=== PATIENT | female | born 1965 | race Two or more races ===

== ENCOUNTER → 2019-12-21 09:11 | Outpatient (BNVA) | payer MEDICAID, SELFPAY | PROVIDERS: PCP Student in an Organized Health Care Education/Training Program; Referring Provider Student in an Organized Health Care Education/Training Program; Visit Provider Internal Medicine Endocrinology, Diabetes & Metabolism | DX: E03.8 Other specified hypothyroidism (principal); E06.3 Autoimmune thyroiditis; R94.5 Abnormal results of liver function studies; E78.5 Hyperlipidemia, unspecified; Z79.899 Other long term (current) drug therapy | CPT/HCPCS: 99212 ==

== ENCOUNTER 2019-12-29 13:39 | Outpatient (REF) | payer MEDICAID, SELFPAY ==
--- NOTE | 2019-12-29 13:46 | US_ITS ---
EXAMINATION: US THYROID CLINICAL INFORMATION: Other specified hypothyroidism. COMPARISON: Ultrasound soft tissue head/neck thyroid dated 08/10/2019 and 08/09/2018. TECHNIQUE: Linear transducer zavala-scale and color Doppler examination with attention to the region of the thyroid. FINDINGS: SIZE: Measurements of the solitary left thyroid lobe and nodules are given in sagittal, anteroposterior and transverse dimensions respectively. Right Thyroid Lobe: Surgically absent. Left Thyroid Lobe: 4.1 x 1.6 x 1.6 cm, volume 5.5 mL. Previously 4.9 x 1.9 x 1.8 cm, volume 8.8 mL. Parenchyma: The gland echotexture is heterogeneous. Thyroid vascularity is increased. Isthmus: 0.3 cm in maximum AP dimension. ISTHMUS: No nodules. LEFT THYROID LOBE: There is 1 nodule seen. 1. Location: Inferior. Size: 1.1 x 0.7 x 0.8 cm. Previous: 1.1 x 0.9 x 1.0 cm. Nodule characteristics: Hypoechoic with smooth margins. No internal calcification. There is intranodular flow. NODES: None. US/US thyroid IMPRESSION: Heterogeneous thyroid gland with increased vascularity, similar to prior. Unchanged nodule in the left thyroid lobe.
== END 2019-12-29 13:40 | disposition home or self-care (01) ==
LOC: HO.US 13:39
PROVIDERS: PCP Student in an Organized Health Care Education/Training Program; Visit Provider Internal Medicine Endocrinology, Diabetes & Metabolism
DX: E03.8 Other specified hypothyroidism (principal); E06.3 Autoimmune thyroiditis
CPT/HCPCS: 76536

== ENCOUNTER → 2020-02-24 12:28 | Outpatient (BNVA) | payer MEDICAID, SELFPAY | PROVIDERS: PCP Student in an Organized Health Care Education/Training Program; Visit Provider Student in an Organized Health Care Education/Training Program | DX: Z76.89 Persons encountering health services in other specified circumstances (principal) ==

== ENCOUNTER 2020-03-09 08:39 | Outpatient (REF) | payer MEDICAID, SELFPAY ==
--- NOTE | 2020-03-09 08:54 | XR_ITS ---
EXAMINATION: XR ANKLE, RIGHT CLINICAL INFORMATION: Rheumatoid arthritis with rheumatoid factor COMPARISON: Right foot x-ray August 2018 TECHNIQUE: AP, lateral, and mortise views of the right ankle. FINDINGS: Bone alignment is normal. No fracture or dislocation is seen. The ankle mortise is normal. There is a small calcaneal spur at the Achilles tendon insertion. XR/XR ankle RT min 3V IMPRESSION: Calcaneal spur at the Achilles tendon insertion otherwise unremarkable exam
[2020-03-09 09:18] LABS: MANUAL DIFF FLAG NO
[2020-03-09 09:25] LABS: Basophils Percent Auto 0.2 % (0-2); Eosinophils Absolute Auto 0.1 X10*3/uL (0.0-0.4); Eosinophils Percent Auto 1.4 % (0-4); Hematocrit 39.6 % (37-47); Hemoglobin 12.5 g/dl (12.0-16.0); Imm Gran Abs Auto 0.01 X10*3/uL (0.00-0.03); Imm Gran Pct Auto 0.2 % (0.0-0.4); Lymphocytes Absolute Auto 1.6 X10*3/uL (1.2-4.9); Lymphocytes Percent Auto 38.6 % (20-40); Mean Corpuscular HGB Conc 31.6 g/dl (31.0-35.0); Mean Corpuscular Hemoglobin 30.9 pg (27.0-33.0); Mean Corpuscular Volume 97.8 fL (80-98); Mean Platelet Volume 10.1 fL (9.4-12.3); Monocytes Absolute Auto 0.4 X10*3/uL (0.1-1.2); Monocytes Percent Auto 9.7 % (2-11); Neutrophils Absolute Auto 2.1 X10*3/uL (2.0-8.3); Neutrophils Percent Auto 49.9 % (45-73); Platelet Count 257 X10*3/uL (160-400); Red Blood Count 4.05 X10*6/uL (4.20-5.50); Red Cell Distribution Width 12.6 % (11.0-16.0); White Blood Count 4.1 X10*3/uL (4.8-10.8)
[2020-03-09 09:47] LABS: Alanine Aminotransferase 27 U/L (0-31); Albumin Level 4.3 g/dL (3.5-5.0); Alkaline Phosphatase 126 U/L (39-117); Anion Gap 9 (12-20); Aspartate Amino Transferase 21 U/L (5-31); Bilirubin Direct < 0.2 mg/dL (0.0-0.5); Bilirubin Total 0.2 mg/dL (0.0-1.0); Blood Urea Nitrogen 14 mg/dL (9-16); C Reactive Protein 0.05 mg/dL (< or = 0.50); Calcium 8.9 mg/dL (8.4-10.2); Carbon Dioxide 30 mmol/L (22-29); Chloride 105 mmol/L (96-108); Cholesterol 182 mg/dL; Estimated Glomerular Filt Rate > 60; Glucose Random 97 mg/dL (60-115); HDL Cholesterol 57 mg/dL; LDL Cholesterol Calculated 100 mg/dl; Potassium 4.2 mmol/l (3.3-5.1); Sodium 140 mmol/L (135-145); Total Protein 7.3 g/dL (6.5-8.0); Triglycerides 129 mg/dL
[2020-03-09 10:07] LABS: Free T4 (Free Thyroxine) 1.03 ng/dL (0.71-1.85); Thyroid Stimulating Hormone 8.74 uIU/mL (0.32-4.0)
[2020-03-09 10:10] LABS: Erythrocyte Sedimentation Rate 7 MM/HR (0-20)
[2020-03-10 09:07] LABS: LDL Cholesterol Direct 104 mg/dL (<100)
== END 2020-03-09 08:40 | disposition home or self-care (01) ==
LOC: HO.LAB 08:39
PROVIDERS: PCP Student in an Organized Health Care Education/Training Program; Referring Provider Student in an Organized Health Care Education/Training Program; Visit Provider Internal Medicine Endocrinology, Diabetes & Metabolism
DX: M05.9 Rheumatoid arthritis with rheumatoid factor, unspecified (principal); E03.8 Other specified hypothyroidism; E06.3 Autoimmune thyroiditis; E78.5 Hyperlipidemia, unspecified
CPT/HCPCS: 36415; 73610; 80053; 80061; 80076; 82248; 83721; 84439; 84443; 85025; 85652; 86140

== ENCOUNTER 2020-05-09 07:56 | Outpatient (REF) | payer MEDICAID, SELFPAY ==
[2020-05-09 09:07] LABS: Alanine Aminotransferase 26 U/L (0-31); Albumin Level 4.2 g/dL (3.5-5.0); Alkaline Phosphatase 115 U/L (39-117); Anion Gap 15 (12-20); Aspartate Amino Transferase 24 U/L (5-31); Bilirubin Direct 0.2 mg/dL (0.0-0.5); Blood Urea Nitrogen 14 mg/dL (9-16); Calcium 8.8 mg/dL (8.4-10.2); Carbon Dioxide 26 mmol/L (22-29); Chloride 103 mmol/L (96-108); Cholesterol 164 mg/dL; Estimated Glomerular Filt Rate > 60; Glucose Random 90 mg/dL (60-115); HDL Cholesterol 50 mg/dL; LDL Cholesterol Calculated 87 mg/dl; Potassium 4.1 mmol/L (3.3-5.1); Sodium 140 mmol/L (135-145); Total Protein 7.3 g/dL (6.5-8.0); Triglycerides 135 mg/dL
[2020-05-09 09:25] LABS: Free T4 (Free Thyroxine) 0.93 ng/dL (0.71-1.85)
[2020-05-09 09:51] LABS: Vitamin B12 233 pg/mL (200-900)
== END 2020-05-09 07:57 | disposition home or self-care (01) ==
LOC: HO.LAB 07:56
PROVIDERS: Absent Provider Student in an Organized Health Care Education/Training Program; PCP Student in an Organized Health Care Education/Training Program; Visit Provider Internal Medicine Endocrinology, Diabetes & Metabolism
DX: E03.8 Other specified hypothyroidism (principal); E06.3 Autoimmune thyroiditis; R41.3 Other amnesia; M05.9 Rheumatoid arthritis with rheumatoid factor, unspecified; M77.31 Calcaneal spur, right foot; Z79.899 Other long term (current) drug therapy
CPT/HCPCS: 36415; 80048; 80061; 80076; 82607; 84439; 84443; 99212

== ENCOUNTER → 2020-06-19 13:36 | Outpatient (BNVA) | payer MEDICAID, SELFPAY | PROVIDERS: PCP Student in an Organized Health Care Education/Training Program; Visit Provider Internal Medicine Endocrinology, Diabetes & Metabolism ==

== ENCOUNTER 2020-09-07 13:37 | Outpatient (REF) | payer MEDICAID, SELFPAY ==
[2020-09-07 14:43] LABS: MANUAL DIFF FLAG NO
[2020-09-07 15:04] LABS: Basophils Percent Auto 0.5 % (0-2); Eosinophils Absolute Auto 0.1 X10*3/uL (0.0-0.4); Eosinophils Percent Auto 1.8 % (0-4); Hematocrit 38.5 % (37-47); Hemoglobin 12.3 g/dl (12.0-16.0); Imm Gran Abs Auto 0.01 X10*3/uL (0.00-0.03); Imm Gran Pct Auto 0.2 % (0.0-0.4); Lymphocytes Absolute Auto 1.5 X10*3/uL (1.2-4.9); Lymphocytes Percent Auto 34.3 % (20-40); Mean Corpuscular HGB Conc 31.9 g/dl (31.0-35.0); Mean Corpuscular Hemoglobin 30.6 pg (27.0-33.0); Mean Corpuscular Volume 95.8 fL (80-98); Mean Platelet Volume 10.2 fL (9.4-12.3); Monocytes Absolute Auto 0.4 X10*3/uL (0.1-1.2); Monocytes Percent Auto 8.9 % (2-11); Neutrophils Absolute Auto 2.4 X10*3/uL (2.0-8.3); Neutrophils Percent Auto 54.3 % (45-73); Platelet Count 266 X10*3/uL (160-400); Red Blood Count 4.02 X10*6/uL (4.20-5.50); Red Cell Distribution Width 13.3 % (11.0-16.0); White Blood Count 4.4 X10*3/uL (4.8-10.8)
[2020-09-07 15:09] LABS: Alanine Aminotransferase 22 U/L (0-31); Albumin Level 4.3 g/dL (3.5-5.0); Alkaline Phosphatase 121 U/L (39-117); Anion Gap 13 (12-20); Aspartate Amino Transferase 22 U/L (5-31); Bilirubin Total 0.5 mg/dL (0.0-1.0); Blood Urea Nitrogen 12 mg/dL (9-16); C Reactive Protein 0.05 mg/dL (< or = 0.50); Calcium 9.6 mg/dL (8.4-10.2); Carbon Dioxide 24 mmol/L (22-29); Chloride 109 mmol/L (96-108); Estimated Glomerular Filt Rate > 60; Glucose Random 113 mg/dL (60-115); Potassium 4.1 mmol/L (3.3-5.1); Sodium 142 mmol/L (135-145); Total Protein 7.3 g/dL (6.5-8.0)
[2020-09-07 15:29] LABS: Thyroid Stimulating Hormone 3.23 uIU/mL (0.32-4.0)
[2020-09-07 15:30] LABS: Free T4 (Free Thyroxine) 0.92 ng/dL (0.71-1.85)
[2020-09-07 15:46] LABS: Erythrocyte Sedimentation Rate 8 MM/HR (0-20)
== END 2020-09-07 13:38 | disposition home or self-care (01) ==
LOC: HO.LAB 13:37
PROVIDERS: PCP Student in an Organized Health Care Education/Training Program; Referring Provider Internal Medicine Endocrinology, Diabetes & Metabolism; Visit Provider Student in an Organized Health Care Education/Training Program
DX: M05.9 Rheumatoid arthritis with rheumatoid factor, unspecified (principal); E03.8 Other specified hypothyroidism; E06.3 Autoimmune thyroiditis; M77.31 Calcaneal spur, right foot; Z79.899 Other long term (current) drug therapy
CPT/HCPCS: 36415; 80053; 84439; 84443; 85025; 85652; 86140; 99212

== ENCOUNTER 2021-03-27 09:40 | Outpatient (REF) | payer MEDICAID, SELFPAY ==
[2021-03-27 10:58] LABS: MANUAL DIFF FLAG NO
[2021-03-27 11:09] LABS: Basophils Percent Auto 0.5 % (0-2); Eosinophils Absolute Auto 0.1 X10*3/uL (0.0-0.4); Eosinophils Percent Auto 1.8 % (0-4); Hematocrit 41.4 % (37.0-47.0); Hemoglobin 13.3 g/dl (12.0-16.0); Lymphocytes Absolute Auto 1.4 X10*3/uL (1.2-4.9); Mean Corpuscular HGB Conc 32.1 g/dl (31.0-35.0); Mean Corpuscular Hemoglobin 30.5 pg (27.0-33.0); Monocytes Absolute Auto 0.4 X10*3/uL (0.1-1.2); Monocytes Percent Auto 8.8 % (2-11); Neutrophils Absolute Auto 2.2 x10*3/uL (2.0-8.3); Neutrophils Percent Auto 54.9 % (45-73); Platelet Count 254 X10*3/uL (160-400); Red Blood Count 4.36 X10*6/uL (4.20-5.50); Red Cell Distribution Width 12.5 % (11.0-16.0)
[2021-03-27 11:54] LABS: Erythrocyte Sedimentation Rate 12 MM/HR (0-20)
[2021-03-27 13:50] LABS: Alanine Aminotransferase 19 U/L (0-31); Albumin Level 4.2 g/dL (3.5-5.0); Alkaline Phosphatase 131 U/L (39-117); Anion Gap 10 (12-20); Aspartate Amino Transferase 17 U/L (5-31); Bilirubin Total 0.6 mg/dL (0.0-1.0); C Reactive Protein 0.08 mg/dL (< or = 0.50); Carbon Dioxide 27 mmol/L (22-29); Chloride 108 mmol/L (96-108); Estimated Glomerular Filt Rate > 60; Glucose Random 120 mg/dL (60-115); Sodium 141 mmol/L (135-145); Total Protein 7.4 g/dL (6.5-8.0)
[2021-03-27 14:57] LABS: Blood Urea Nitrogen 15 mg/dL (9-16); Calcium 9.4 mg/dL (8.4-10.2); Potassium 4.4 mmol/L (3.3-5.1)
== END 2021-03-27 09:41 | disposition home or self-care (01) ==
LOC: HO.LAB 09:40
PROVIDERS: PCP Student in an Organized Health Care Education/Training Program; Visit Provider Nurse Practitioner Family
DX: M05.9 Rheumatoid arthritis with rheumatoid factor, unspecified (principal); M77.31 Calcaneal spur, right foot; M54.50 Low back pain, unspecified; Z79.899 Other long term (current) drug therapy
CPT/HCPCS: 36415; 80053; 85025; 85652; 86140; 99212

== ENCOUNTER 2021-04-15 10:15 | Outpatient (REF) | payer MEDICAID, SELFPAY ==
--- NOTE | ~2021-04-15 | XR_ITS ---
EXAMINATION: XR LUMBOSACRAL SPINE CLINICAL INFORMATION: Low back pain COMPARISON: X-ray 11/21/2014 TECHNIQUE: Three views of the lumbosacral spine. FINDINGS: There is normal alignment. Vertebral body heights are maintained. No evidence of acute fracture. Disc spaces relatively maintained. Mild endplate spurring at a few levels. Mild facet degeneration in the lower lumbar spine. XR/XR lumbar spine 2-3V IMPRESSION: No acute osseous abnormality. Minimal spondylosis.
[2021-04-15 11:57] LABS: Cholesterol 175 mg/dL; HDL Cholesterol 49 mg/dL; LDL Cholesterol Calculated 105 mg/dl; Triglycerides 109 mg/dL
[2021-04-15 12:09] LABS: Free T4 (Free Thyroxine) 1.01 ng/dL (0.71-1.85); Thyroid Stimulating Hormone 5.56 uIU/mL (0.32-4.0)
[2021-04-16 17:31] LABS: LDL Cholesterol Direct 107 mg/dL (<100)
[2021-04-17 19:27] LABS: Alkaline Phosphatase Bone 15.5 mcg/L (5.6-29.0)
== END 2021-04-15 10:16 | disposition home or self-care (01) ==
LOC: HO.LAB 10:15
PROVIDERS: Absent Provider Nurse Practitioner Family; PCP Student in an Organized Health Care Education/Training Program; Visit Provider Internal Medicine Endocrinology, Diabetes & Metabolism
DX: E03.8 Other specified hypothyroidism (principal); E06.3 Autoimmune thyroiditis; E78.5 Hyperlipidemia, unspecified; M54.50 Low back pain, unspecified; R74.8 Abnormal levels of other serum enzymes
CPT/HCPCS: 36415; 72100; 80061; 83721; 84075; 84439; 84443

== ENCOUNTER → 2021-04-16 13:06 | Outpatient (BNVA) | payer MEDICAID, SELFPAY | PROVIDERS: PCP Student in an Organized Health Care Education/Training Program; Visit Provider Internal Medicine Endocrinology, Diabetes & Metabolism | DX: E03.8 Other specified hypothyroidism (principal); E06.3 Autoimmune thyroiditis; E78.5 Hyperlipidemia, unspecified; Z79.899 Other long term (current) drug therapy | CPT/HCPCS: 99212 ==

== ENCOUNTER 2021-05-27 10:08 | Outpatient (REF) | payer MEDICAID, SELFPAY ==
[2021-05-27 12:01] LABS: Free T4 (Free Thyroxine) 0.76 ng/dL (0.71-1.85); Thyroid Stimulating Hormone 14.45 uIU/mL (0.32-4.0)
== END 2021-05-27 10:09 | disposition home or self-care (01) ==
LOC: HO.LAB 10:08
PROVIDERS: PCP Student in an Organized Health Care Education/Training Program; Visit Provider Internal Medicine Endocrinology, Diabetes & Metabolism
DX: E03.8 Other specified hypothyroidism (principal); E06.3 Autoimmune thyroiditis
CPT/HCPCS: 36415; 84439; 84443

== ENCOUNTER 2021-06-24 09:56 | Outpatient (REF) | payer MEDICAID, SELFPAY ==
[2021-06-24 10:26] LABS: MANUAL DIFF FLAG NO
[2021-06-24 11:18] LABS: Basophils Percent Auto 0.7 % (0-2); Eosinophils Absolute Auto 0.1 X10*3/uL (0.0-0.4); Hematocrit 38.3 % (37.0-47.0); Hemoglobin 12.1 g/dl (12.0-16.0); Imm Gran Abs Auto 0.02 X10*3/uL (0.00-0.03); Imm Gran Pct Auto 0.4 % (0.0-0.4); Lymphocytes Absolute Auto 1.6 X10*3/uL (1.2-4.9); Lymphocytes Percent Auto 34.9 % (20-40); Mean Corpuscular HGB Conc 31.6 g/dl (31.0-35.0); Mean Corpuscular Volume 94.8 fL (80.0-98.0); Mean Platelet Volume 10.3 fL (9.4-12.3); Monocytes Absolute Auto 0.3 X10*3/uL (0.1-1.2); Monocytes Percent Auto 6.8 % (2-11); Neutrophils Absolute Auto 2.5 x10*3/uL (2.0-8.3); Neutrophils Percent Auto 55.2 % (45-73); Platelet Count 303 X10*3/uL (160-400); Red Blood Count 4.04 X10*6/uL (4.20-5.50); Red Cell Distribution Width 13.3 % (11.0-16.0); White Blood Count 4.6 X10*3/uL (4.8-10.8)
[2021-06-24 11:45] LABS: Alanine Aminotransferase 19 U/L (0-31); Albumin Level 3.9 g/dL (3.5-5.0); Alkaline Phosphatase 116 U/L (39-117); Anion Gap 15 (12-20); Aspartate Amino Transferase 20 U/L (5-31); Bilirubin Total 0.3 mg/dL (0.0-1.0); Blood Urea Nitrogen 13 mg/dL (9-16); C Reactive Protein 0.14 mg/dL (< or = 0.50); Calcium 9.3 mg/dL (8.4-10.2); Carbon Dioxide 24 mmol/L (22-29); Chloride 108 mmol/L (96-108); Estimated Glomerular Filt Rate > 60; Glucose Random 116 mg/dL (60-115); Potassium 4.8 mmol/L (3.3-5.1); Sodium 142 mmol/L (135-145); Total Protein 7.4 g/dL (6.5-8.0)
[2021-06-24 11:55] LABS: Erythrocyte Sedimentation Rate 23 MM/HR (0-20)
[2021-06-24 12:07] LABS: Free T4 (Free Thyroxine) 0.98 ng/dL (0.71-1.85)
== END 2021-06-24 09:57 | disposition home or self-care (01) ==
LOC: HO.LAB 09:56
PROVIDERS: Absent Provider Internal Medicine Endocrinology, Diabetes & Metabolism; PCP Student in an Organized Health Care Education/Training Program; Visit Provider Nurse Practitioner Family
DX: E03.8 Other specified hypothyroidism (principal); E06.3 Autoimmune thyroiditis; M05.9 Rheumatoid arthritis with rheumatoid factor, unspecified
CPT/HCPCS: 36415; 80053; 84439; 84443; 85025; 85652; 86140

== ENCOUNTER → 2021-06-26 12:20 | Outpatient (BNVA) | payer MEDICAID, SELFPAY | PROVIDERS: PCP Student in an Organized Health Care Education/Training Program; Visit Provider Nurse Practitioner Family | DX: M05.9 Rheumatoid arthritis with rheumatoid factor, unspecified (principal); M54.50 Low back pain, unspecified; M77.31 Calcaneal spur, right foot; Z79.899 Other long term (current) drug therapy | CPT/HCPCS: 99212 ==

== ENCOUNTER 2021-06-27 12:48 | Outpatient (REF) | payer MEDICAID, SELFPAY ==
--- NOTE | ~2021-06-27 | MM_ITS ---
EXAMINATION: MM SCREENING DIGITAL BREAST TOMOSYNTHESIS, BILATERAL CLINICAL INFORMATION: Screening. Asymptomatic. The lifetime risk of breast cancer based on the Tyrer-Cuzick Model is 8.1%. COMPARISON: Mammography: 01/03/2019 and studies dating back to 10/30/2014. TECHNIQUE: Digital breast tomosynthesis is performed in both the craniocaudal and mediolateral oblique views along with computer-aided detection (CAD). Synthesized 2D images are generated from the tomosynthesis. Additional bilateral exaggerated craniocaudal views performed. FINDINGS: The breasts are extremely dense, which lowers the sensitivity of mammography (ACR BI-RADS breast composition Category d). There are no significant masses, abnormal calcifications, or other abnormalities. There is question of a irregular marginated density on left breast mediolateral oblique projection inferiorly; however, exaggerated craniocaudal view and tomosynthesis views demonstrate this to have represented superimposition of fibroglandular tissue. MM/MM tomosynthesis screening BI IMPRESSION: There are no significant changes from prior study. ASSESSMENT: BI-RADS 1: Negative. RECOMMENDATION: Routine annual mammography screening. This patient's information was entered into a reminder system with a target due date for their next mammogram.
== END 2021-06-27 12:49 | disposition home or self-care (01) ==
LOC: HO.MAMMO 12:48
PROVIDERS: PCP Student in an Organized Health Care Education/Training Program; Visit Provider Student in an Organized Health Care Education/Training Program
DX: Z12.31 Encounter for screening mammogram for malignant neoplasm of breast (principal)
CPT/HCPCS: 77063; 77067

== ENCOUNTER 2021-09-27 09:04 | Outpatient (REF) | payer MEDICAID, SELFPAY ==
[2021-09-27 09:20] LABS: MANUAL DIFF FLAG NO
[2021-09-27 10:16] LABS: Basophils Percent Auto 0.7 % (0-2); Eosinophils Absolute Auto 0.1 X10*3/uL (0.0-0.4); Eosinophils Percent Auto 1.9 % (0-4); Hematocrit 41.3 % (37.0-47.0); Hemoglobin 13.3 g/dl (12.0-16.0); Imm Gran Abs Auto 0.01 X10*3/uL (0.00-0.03); Imm Gran Pct Auto 0.2 % (0.0-0.4); Lymphocytes Absolute Auto 1.9 X10*3/uL (1.2-4.9); Lymphocytes Percent Auto 43.6 % (20-40); Mean Corpuscular HGB Conc 32.2 g/dl (31.0-35.0); Mean Corpuscular Hemoglobin 30.1 pg (27.0-33.0); Mean Corpuscular Volume 93.4 fL (80.0-98.0); Mean Platelet Volume 10.3 fL (9.4-12.3); Monocytes Absolute Auto 0.5 X10*3/uL (0.1-1.2); Monocytes Percent Auto 10.7 % (2-11); Neutrophils Absolute Auto 1.9 x10*3/uL (2.0-8.3); Neutrophils Percent Auto 42.9 % (45-73); Platelet Count 284 X10*3/uL (160-400); Red Blood Count 4.42 X10*6/uL (4.20-5.50); Red Cell Distribution Width 13.6 % (11.0-16.0); White Blood Count 4.3 X10*3/uL (4.8-10.8)
[2021-09-27 10:31] LABS: Alanine Aminotransferase 20 U/L (0-31); Albumin Level 4.3 g/dL (3.5-5.0); Alkaline Phosphatase 127 U/L (39-117); Anion Gap 15 (12-20); Aspartate Amino Transferase 17 U/L (5-31); Bilirubin Total 0.6 mg/dL (0.0-1.0); Blood Urea Nitrogen 14 mg/dL (9-16); Calcium 9.6 mg/dL (8.4-10.2); Carbon Dioxide 27 mmol/L (22-29); Chloride 102 mmol/L (96-108); Estimated Glomerular Filt Rate > 60; Glucose Random 109 mg/dL (60-115); Potassium 4.4 mmol/L (3.3-5.1); Sodium 140 mmol/L (135-145); Total Protein 7.6 g/dL (6.5-8.0)
[2021-09-27 10:56] LABS: Erythrocyte Sedimentation Rate 13 MM/HR (0-20)
[2021-09-27 10:57] LABS: Free T4 (Free Thyroxine) 1.03 ng/dL (0.71-1.85)
== END 2021-09-27 09:05 | disposition home or self-care (01) ==
LOC: HO.LAB 09:04
PROVIDERS: Absent Provider Internal Medicine Endocrinology, Diabetes & Metabolism; PCP Student in an Organized Health Care Education/Training Program; Visit Provider Nurse Practitioner Family
DX: E03.8 Other specified hypothyroidism (principal); E06.3 Autoimmune thyroiditis; M05.9 Rheumatoid arthritis with rheumatoid factor, unspecified
CPT/HCPCS: 36415; 80053; 84439; 84443; 85025; 85652; 86140

== ENCOUNTER → 2021-10-03 13:40 | Outpatient (BNVA) | payer MEDICAID, SELFPAY | PROVIDERS: PCP Student in an Organized Health Care Education/Training Program; Visit Provider Nurse Practitioner Family | DX: M05.9 Rheumatoid arthritis with rheumatoid factor, unspecified (principal); M54.50 Low back pain, unspecified; M77.31 Calcaneal spur, right foot; Z79.899 Other long term (current) drug therapy | CPT/HCPCS: 99212 ==

== ENCOUNTER → 2021-10-17 13:00 | Outpatient (BNVA) | payer MEDICAID, SELFPAY | PROVIDERS: PCP Student in an Organized Health Care Education/Training Program; Visit Provider Internal Medicine Endocrinology, Diabetes & Metabolism | DX: E03.8 Other specified hypothyroidism (principal); E06.3 Autoimmune thyroiditis; E78.5 Hyperlipidemia, unspecified | CPT/HCPCS: 99212 ==

== ENCOUNTER 2021-10-31 09:15 | Outpatient (REF) | payer MEDICAID, SELFPAY ==
[2021-10-31 09:25] LABS: MANUAL DIFF FLAG NO
[2021-10-31 09:37] LABS: Basophils Percent Auto 0.5 % (0-2); Eosinophils Absolute Auto 0.1 X10*3/uL (0.0-0.4); Eosinophils Percent Auto 1.5 % (0-4); Hematocrit 41.2 % (37.0-47.0); Hemoglobin 13.3 g/dl (12.0-16.0); Imm Gran Abs Auto 0.01 X10*3/uL (0.00-0.03); Imm Gran Pct Auto 0.2 % (0.0-0.4); Lymphocytes Absolute Auto 2.2 X10*3/uL (1.2-4.9); Lymphocytes Percent Auto 36.6 % (20-40); Mean Corpuscular HGB Conc 32.3 g/dl (31.0-35.0); Mean Corpuscular Hemoglobin 30.6 pg (27.0-33.0); Mean Corpuscular Volume 94.9 fL (80.0-98.0); Mean Platelet Volume 10.2 fL (9.4-12.3); Monocytes Absolute Auto 0.6 X10*3/uL (0.1-1.2); Monocytes Percent Auto 9.3 % (2-11); Neutrophils Absolute Auto 3.1 x10*3/uL (2.0-8.3); Neutrophils Percent Auto 51.9 % (45-73); Platelet Count 273 X10*3/uL (160-400); Red Blood Count 4.34 X10*6/uL (4.20-5.50); Red Cell Distribution Width 13.2 % (11.0-16.0)
== END 2021-10-31 09:16 | disposition home or self-care (01) ==
LOC: HO.LAB 09:15
PROVIDERS: PCP Student in an Organized Health Care Education/Training Program; Visit Provider Nurse Practitioner Family
DX: M05.9 Rheumatoid arthritis with rheumatoid factor, unspecified (principal)
CPT/HCPCS: 36415; 85025

== ENCOUNTER → 2022-01-14 13:29 | Outpatient (BNVA) | payer MEDICAID, SELFPAY | PROVIDERS: PCP Student in an Organized Health Care Education/Training Program; Visit Provider Nurse Practitioner Family | DX: M05.9 Rheumatoid arthritis with rheumatoid factor, unspecified (principal); M25.562 Pain in left knee; M54.50 Low back pain, unspecified; M77.31 Calcaneal spur, right foot; Z79.899 Other long term (current) drug therapy | CPT/HCPCS: 99212 ==

== ENCOUNTER 2022-02-03 09:43 | Outpatient (REF) | payer MEDICAID, SELFPAY ==
[2022-02-03 10:03] LABS: MANUAL DIFF FLAG NO
[2022-02-03 10:31] LABS: Basophils Percent Auto 0.5 % (0-2); Eosinophils Absolute Auto 0.1 X10*3/uL (0.0-0.4); Eosinophils Percent Auto 0.9 % (0-4); Hemoglobin 13.2 g/dl (12.0-16.0); Imm Gran Abs Auto 0.01 X10*3/uL (0.00-0.03); Imm Gran Pct Auto 0.2 % (0.0-0.4); Lymphocytes Absolute Auto 2.1 X10*3/uL (1.2-4.9); Lymphocytes Percent Auto 37.2 % (20-40); Mean Corpuscular HGB Conc 31.4 g/dl (31.0-35.0); Mean Corpuscular Hemoglobin 29.4 pg (27.0-33.0); Mean Corpuscular Volume 93.5 fL (80.0-98.0); Monocytes Absolute Auto 0.5 X10*3/uL (0.1-1.2); Monocytes Percent Auto 8.1 % (2-11); Neutrophils Percent Auto 53.1 % (45-73); Platelet Count 305 X10*3/uL (160-400); Red Blood Count 4.49 X10*6/uL (4.20-5.50); Red Cell Distribution Width 12.9 % (11.0-16.0); White Blood Count 5.7 X10*3/uL (4.8-10.8)
[2022-02-03 11:01] LABS: Alanine Aminotransferase 20 U/L (0-31); Aspartate Amino Transferase 16 U/L (5-31); Blood Urea Nitrogen 20 mg/dL (9-16); C Reactive Protein 0.15 mg/dL (< or = 0.50); Estimated Glomerular Filt Rate > 60
[2022-02-03 11:32] LABS: Erythrocyte Sedimentation Rate 18 MM/HR (0-20)
== END 2022-02-03 09:44 | disposition home or self-care (01) ==
LOC: HO.LAB 09:43
PROVIDERS: PCP Nurse Practitioner Family; Visit Provider Nurse Practitioner Family
DX: M05.9 Rheumatoid arthritis with rheumatoid factor, unspecified (principal); M25.562 Pain in left knee; M79.641 Pain in right hand; M79.642 Pain in left hand; Z79.899 Other long term (current) drug therapy
CPT/HCPCS: 36415; 73130; 73562; 82565; 84450; 84460; 84520; 85025; 85652; 86140

== ENCOUNTER → 2022-03-03 10:57 | Outpatient (BNVA) | payer MEDICAID, SELFPAY | PROVIDERS: Visit Provider Nurse Practitioner Family | DX: M05.9 Rheumatoid arthritis with rheumatoid factor, unspecified (principal); M77.31 Calcaneal spur, right foot; E03.9 Hypothyroidism, unspecified; E78.5 Hyperlipidemia, unspecified; Z79.899 Other long term (current) drug therapy | CPT/HCPCS: 99212 ==

== ENCOUNTER 2022-05-28 09:45 | Outpatient (REF) | payer MEDICAID, SELFPAY ==
[2022-05-28 10:00] LABS: MANUAL DIFF FLAG NO
[2022-05-28 10:06] LABS: Basophils Percent Auto 0.6 % (0-2); Eosinophils Absolute Auto 0.1 X10*3/uL (0.0-0.4); Eosinophils Percent Auto 1.6 % (0-4); Hematocrit 40.1 % (37.0-47.0); Imm Gran Abs Auto 0.01 X10*3/uL (0.00-0.03); Imm Gran Pct Auto 0.2 % (0.0-0.4); Lymphocytes Absolute Auto 2.2 X10*3/uL (1.2-4.9); Lymphocytes Percent Auto 42.8 % (20-40); Mean Corpuscular HGB Conc 32.4 g/dl (31.0-35.0); Mean Corpuscular Hemoglobin 29.5 pg (27.0-33.0); Mean Corpuscular Volume 90.9 fL (80.0-98.0); Mean Platelet Volume 10.2 fL (9.4-12.3); Monocytes Absolute Auto 0.4 X10*3/uL (0.1-1.2); Monocytes Percent Auto 8.5 % (2-11); Neutrophils Absolute Auto 2.3 x10*3/uL (2.0-8.3); Neutrophils Percent Auto 46.3 % (45-73); Platelet Count 286 X10*3/uL (160-400); Red Blood Count 4.41 X10*6/uL (4.20-5.50); Red Cell Distribution Width 13.1 % (11.0-16.0); White Blood Count 5.1 X10*3/uL (4.8-10.8)
[2022-05-28 10:53] LABS: Alanine Aminotransferase 28 U/L (0-31); Aspartate Amino Transferase 21 U/L (5-31); C Reactive Protein 0.11 mg/dL (< or = 0.50); Estimated Glomerular Filt Rate > 60
[2022-05-28 10:58] LABS: Erythrocyte Sedimentation Rate 21 MM/HR (0-20)
== END 2022-05-28 09:46 | disposition home or self-care (01) ==
LOC: HO.LAB 09:45
PROVIDERS: Visit Provider Nurse Practitioner Family
DX: M05.9 Rheumatoid arthritis with rheumatoid factor, unspecified (principal); Z79.899 Other long term (current) drug therapy
CPT/HCPCS: 36415; 82565; 84450; 84460; 85025; 85652; 86140

== ENCOUNTER → 2022-06-30 09:54 | Outpatient (REF) | payer MEDICAID, SELFPAY ==
--- NOTE | 2022-06-30 10:02 | ECG_ITS ---
Test Reason : USP DRUG THERAPY Blood Pressure : / mmHG Vent. Rate : 089 BPM Atrial Rate : 089 BPM P-R Int : 138 ms QRS Dur : 070 ms QT Int : 380 ms P-R-T Axes : 054 040 078 degrees QTc Int : 462 ms Normal sinus rhythm Normal ECG No previous ECGs available Referred By: Porsha Ramos Electronically Signed By:Jarrod Sanchez
== END ==
LOC: HO.CARD 09:54
PROVIDERS: PCP Student in an Organized Health Care Education/Training Program; Visit Provider Nurse Practitioner Family
DX: Z79.899 Other long term (current) drug therapy (principal)
CPT/HCPCS: 93005

== ENCOUNTER 2022-08-29 09:23 | Outpatient (REF) | payer MEDICAID, SELFPAY ==
[2022-08-29 11:37] LABS: Alanine Aminotransferase 24 U/L (0-31); Albumin Level 4.1 g/dL (3.5-5.0); Alkaline Phosphatase 130 U/L (39-117); Anion Gap 13 (12-20); Aspartate Amino Transferase 18 U/L (5-31); Bilirubin Direct 0.1 mg/dL (0.0-0.5); Bilirubin Total 0.4 mg/dL (0.0-1.0); Blood Urea Nitrogen 22 mg/dL (9-16); Calcium 9.7 mg/dL (8.4-10.2); Carbon Dioxide 30 mmol/L (22-29); Chloride 101 mmol/L (96-108); Cholesterol 187 mg/dL; Estimated Glomerular Filt Rate > 60; Glucose Random 140 mg/dL (60-115); HDL Cholesterol 49 mg/dL; LDL Cholesterol Calculated 110 mg/dl; Potassium 3.6 mmol/L (3.3-5.1); Sodium 140 mmol/L (135-145); Total Protein 7.6 g/dL (6.5-8.0); Triglycerides 143 mg/dL
[2022-08-29 11:52] LABS: Thyroid Stimulating Hormone 2.93 uIU/mL (0.32-4.0); ~Hepatitis C Antibody Nonreactive (Nonreactive)
[2022-08-29 12:38] LABS: Estimated Average Glucose 126 mg/dL
[2022-09-02 17:29] LABS: HIV RNA PCR Qn Copies Not Detected Copies/mL; HIV RNA PCR Qn Log Copies Not Detected Log cps/mL
== END 2022-08-29 09:24 | disposition home or self-care (01) ==
LOC: HO.LAB 09:23
PROVIDERS: PCP Student in an Organized Health Care Education/Training Program; Visit Provider Student in an Organized Health Care Education/Training Program
DX: Z00.00 Encounter for general adult medical examination without abnormal findings (principal); R73.03 Prediabetes; I10 Essential (primary) hypertension; E03.9 Hypothyroidism, unspecified
CPT/HCPCS: 36415; 80048; 80061; 80076; 83036; 84443; 86803; 87536; 87900

== ENCOUNTER 2022-09-19 10:22 | Outpatient (REF) | payer MEDICAID, SELFPAY ==
--- NOTE | ~2022-09-19 | US_ITS ---
EXAMINATION: US ABDOMEN LIMITED CLINICAL INFORMATION: Elevated liver enzymes. COMPARISON: None available. TECHNIQUE: Real-time imaging of the right upper quadrant abdominal viscera. FINDINGS: PANCREAS: Normal. LIVER: The liver is normal in size. The liver contour is normal. There is increased liver echogenicity. No focal hepatic lesion. There is no intrahepatic biliary duct dilatation seen. GALLBLADDER: There are echogenic gallbladder polyps. Gallbladder wall thickness of 0.2 cm is noted. The gallbladder is physiologically distended without evidence of stones, sludge, wall thickening or pericholecystic fluid. COMMON BILE DUCT: Normal in caliber measuring 0.3 cm in diameter. RIGHT KIDNEY: Normal. No hydronephrosis. No renal calculi or focal parenchymal lesions. The kidney measures 11.3 cm in maximum dimension. FREE FLUID: None. US/US abdomen limited IMPRESSION: 1. Echogenic gallbladder polyps but no echogenic stones or wall thickening. 2. Rest of the limited right upper quadrant ultrasound is unremarkable.
== END 2022-09-19 10:23 | disposition home or self-care (01) ==
LOC: HO.US 10:22
PROVIDERS: PCP Student in an Organized Health Care Education/Training Program; Visit Provider Student in an Organized Health Care Education/Training Program
DX: R74.8 Abnormal levels of other serum enzymes (principal)
CPT/HCPCS: 76705

== ENCOUNTER 2022-10-13 09:57 | Outpatient (REF) | payer MEDICAID, SELFPAY ==
[2022-10-13 10:13] LABS: MANUAL DIFF FLAG NO
[2022-10-13 10:18] LABS: Basophils Percent Auto 0.5 % (0-2); Eosinophils Absolute Auto 0.1 X10*3/uL (0.0-0.4); Eosinophils Percent Auto 1.6 % (0-4); Hematocrit 39.3 % (37.0-47.0); Hemoglobin 12.6 g/dl (12.0-16.0); Imm Gran Abs Auto 0.01 X10*3/uL (0.00-0.03); Imm Gran Pct Auto 0.2 % (0.0-0.4); Lymphocytes Absolute Auto 1.7 X10*3/uL (1.2-4.9); Lymphocytes Percent Auto 38.8 % (20-40); Mean Corpuscular HGB Conc 32.1 g/dl (31.0-35.0); Mean Corpuscular Hemoglobin 29.4 pg (27.0-33.0); Mean Corpuscular Volume 91.8 fL (80.0-98.0); Mean Platelet Volume 10.1 fL (9.4-12.3); Monocytes Absolute Auto 0.4 X10*3/uL (0.1-1.2); Monocytes Percent Auto 9.5 % (2-11); Neutrophils Absolute Auto 2.1 x10*3/uL (2.0-8.3); Neutrophils Percent Auto 49.4 % (45-73); Platelet Count 265 X10*3/uL (160-400); Red Blood Count 4.28 X10*6/uL (4.20-5.50); Red Cell Distribution Width 12.8 % (11.0-16.0); White Blood Count 4.3 X10*3/uL (4.8-10.8)
[2022-10-13 11:02] LABS: Alanine Aminotransferase 20 U/L (0-31); Aspartate Amino Transferase 18 U/L (5-31); C Reactive Protein 0.21 mg/dL (< or = 0.50); Estimated Glomerular Filt Rate > 60
[2022-10-13 11:10] LABS: Erythrocyte Sedimentation Rate 18 MM/HR (0-20)
== END 2022-10-13 09:58 | disposition home or self-care (01) ==
LOC: HO.LAB 09:57
PROVIDERS: PCP Student in an Organized Health Care Education/Training Program; Visit Provider Internal Medicine Rheumatology
DX: M05.9 Rheumatoid arthritis with rheumatoid factor, unspecified (principal); Z79.899 Other long term (current) drug therapy
CPT/HCPCS: 36415; 82565; 84450; 84460; 85025; 85652; 86140

== ENCOUNTER 2022-10-17 15:35 | Outpatient (AMB) | payer MEDICAID, SELFPAY ==
[2022-10-17 15:38] VITALS: BP 126/68; PULSE 94; TEMP 36.4; O2SAT 98; BMI 33.3
--- NOTE | 2022-10-17 15:38 | A.OFFVIS_ITS ---
Intake Vital Signs 10/17/22 15:38 Height 5 ft 4 in Weight 194 lb 0.108 oz BMI 33.3 BP 126/68 Blood Pressure Location Rt brachial Position Sitting Pulse 94 Pulse Source Pulse Oximeter Temp 97.5 F Temp Source Skin Pulse Oximetry (%) 98 Intake Visit Reasons: rheumatoid arthritis Intake Note: Pt seen today for RA follow up. She c/o bl knee pain; states she mentioned this before but was told . She fell in April, pain worse since then Health Services Rn Required: Yes Health Services Rn Name: Jaylen [id number] Information Interpreted: clinical only Accompanied by: Self / Same As Patient Allergies oxycodone [Percocet] Allergy (Intermediate, Verified 10/17/22 15:40) vomiting tramadol Allergy (Intermediate, Verified 10/17/22 15:40) Vomiting acetaminophen [Percocet] Allergy (Unknown, Verified 10/17/22 15:40) vomiting Aspirin Allergy (Intermediate, Uncoded 10/17/22 15:40) rash Percocet Allergy (Intermediate, Uncoded 10/17/22 15:40) vomiting SHELLFISH Allergy (Intermediate, Uncoded 10/17/22 15:40) RASH Medication List - Last Reconciled 10/17/22 by Yasmin Barber MD acetaminophen ER (Tylenol Arthritis Pain) 650 mg PO Q8H PRN amitriptyline 75 mg PO BEDTIME atorvastatin 40 mg PO DAILY buspirone 20 mg PO BID cholecalciferol (vitamin D3) 25 mcg PO DAILY citalopram 40 mg PO DAILY folic acid 1 mg PO DAILY hydrochlorothiazide 25 mg PO DAILY hydroxychloroquine 200 mg PO DAILY levothyroxine 125 mcg PO DAILY methotrexate sodium 5 mg (2 x 2.5 mg) PO QWEEK omeprazole 20 mg PO DAILY quetiapine 50 mg PO BEDTIME HPI HPI Comments History of Present Illness Details This is a 57-year-old female with seropositive RA who presents for follow-up. On methotrexate 5 mg once weekly and hydroxychloroquine 20 mg daily. Her RA is well controlled. Follows up regularly with Ophthalmology, she is due for an appointment next month. Patient states that back in April tripped on a toy and fell on her right knee, she felt something snap. She states that since then she has had pain just below her right knee. She was evaluated by her PCP and was told that the pain is likely muscular. Patient states that the knee pain has not gone away. Occasionally her right knee gives out. She takes Tylenol and rubs a menthol based cream on it which provided minimal relief. [facility] Medical History Dyslipidemia Hypothyroidism Seropositive rheumatoid arthritis Surgical History History of biopsy History of thyroid surgery Family History Father Family history of prostate cancer in father Mother Alzheimer disease Social History Household Members: Family Housing: House Alcohol intake: never Patient Tobacco Use Status: Never used Tobacco Review of Systems [facility] Reports arthralgias and Reports stiffness Physical Exam Vital Signs: Last Vital Signs Temp 97.5 F 10/17/22 15:38 Pulse 94 10/17/22 15:38 BP 126/68 10/17/22 15:38 Pulse Ox 98 10/17/22 15:38 BMI result Body Mass Index 33.3 Const General: cooperative, healthy appearing and comfortable Nutritional Appearance: obese Orientation/consciousness: patient oriented x3 Limitations: no limitations HEENT Head: Yes normocephalic and Yes atraumatic Mouth: moist mucous membranes Resp Effort & Inspection: normal respiratory effort and able to speak in complete sentences Neuro General: patient oriented x3 Extrem Other: No active synovitis both hands. Mild osteoarthritic changes in both hands with few Ciara's nodes, right middle finger Ciara's nodes slightly tender to palpation Right knee pain with full flexion Right inferomedial knee tenderness without significant swelling. Results Reviewed Results Reviewed: Laboratory Tests 02/03/2022 EXAMINATION: XR KNEE, LEFT CLINICAL INFORMATION: M25.562 - Pain in left knee? COMPARISON: Radiographs left knee 12/26/2010? TECHNIQUE: Four views of the left knee. FINDINGS: No fracture, dislocation, or destructive process. The medial and lateral knee joint compartments show no focal narrowing or subchondral sclerosis. No erosive change or chondrocalcinosis. Axial view patella shows mild narrowing lateral patellofemoral joint without lateralization of the patella or patellar tilting. There is spurring at the quadriceps insertion patella. Hoffa's fat pad appears normal. There is no suprapatellar effusion. The deep infrapatellar recess is preserved.? XR/XR knee LT 3V IMPRESSION: 1. Mild narrowing lateral patellofemoral joint. 2. Spurring at quadriceps insertion patella. 3. No joint narrowing or erosive change. No effusion. 02/03/2022 EXAMINATION: XR HAND, RIGHT XR HAND, LEFT CLINICAL INFORMATION: Pain in hands.? COMPARISON: Bilateral wrist radiographs 11/28/2016? TECHNIQUE: Each hand is imaged in 3 views. There are total of 6 views.? FINDINGS: Right: Bony mineralization within normal. No periarticular demineralization. The ulnar variance is neutral. Pronator quadratus fat pad is normal. The carpus shows no joint narrowing or erosive change or chondrocalcinosis. The MCP and PIP joints are unremarkable. Borderline narrowing second through fifth DIP joints. No erosive change. Left: Bony mineralization within normal. No periarticular demineralization. The ulnar variance is neutral. Pronator quadratus fat pad is normal. The carpus shows no joint narrowing or erosive change or chondrocalcinosis. The MCP and PIP joints are unremarkable. Borderline narrowing second through fifth DIP joints. No erosive change. XR/XR hand RT min 3V IMPRESSION: -Bilateral borderline narrowing 2nd-5th DIP joints. No erosive changes. ? -Bilateral carpus and MCP joints are unremarkable. Assessment & Plan Assessment & Plan (1) Seropositive rheumatoid arthritis: Comment: plaquenil 05/2011- present Code(s): M05.9 - Rheumatoid arthritis with rheumatoid factor, unspecified Plan: Patient with seropositive RA (RF++ CCP++). On MTX 5 mg weekly, Plaquenil 200 mg daily and folic acid.? Methotrexate dose lowered in the past due to leukopenia.? Patient's RA is well controlled on current meds. 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 Will monitor with frequent labs to monitor for side effects. Advised patient to take folic acid daily to prevent complications of MTX. (3) Long-term use of Plaquenil: Code(s): Z79.899 - Other long-term (current) drug therapy Plan: Due for ophthalmology exam next month 25 minute spent reviewing chart, evaluating patient and documenting. (4) Chronic pain of right knee: Code(s): M25.561 - Pain in right knee; G89.29 - Other chronic pain Plan: Patient tripped over a toy back in 05/08, fell on her right knee, heard a snap and since then had some inferomedial knee pain, right knee occasionally gives out. Patient's pain is not improving. Will order a right knee MRI to rule out internal derangement Plan I spent 26 minutes reviewing patient's chart, evaluating patient, ordering diagnostic workup, counseling patient and documenting in the chart Orders: Orders MR knee RT wo con Today M23.91 - Unspecified internal derangement of right knee Comprehensive Met. Panel 3 Months M05.9 - Rheumatoid arthritis with rheumatoid factor, unspecified C Reactive Protein 3 Months M05.9 - Rheumatoid arthritis with rheumatoid factor, unspecified Complete Blood Count Auto Diff 3 Months M05.9 - Rheumatoid arthritis with rheumatoid factor, unspecified Erythrocyte Sedimentation Rate 3 Months M05.9 - Rheumatoid arthritis with rheumatoid factor, unspecified Coding Level of Care Code Est Pt Level 4 (07100) Diagnoses Seropositive rheumatoid arthritis M05.9 penitentiary methotrexate user Z79.899 Long-term use of Plaquenil Z79.899 Chronic pain of right knee M25.561; G89.29
== END 2022-10-17 16:15 | disposition home or self-care (01) ==
PROVIDERS: PCP Student in an Organized Health Care Education/Training Program; Visit Provider Student in an Organized Health Care Education/Training Program
DX: M05.79 Rheumatoid arthritis with rheumatoid factor of multiple sites without organ or systems involvement (principal); Z79.899 Other long term (current) drug therapy; M25.561 Pain in right knee; G89.29 Other chronic pain
CPT/HCPCS: 99214

== ENCOUNTER → 2022-10-17 15:35 | Outpatient (BNVA) | payer MEDICAID, SELFPAY | PROVIDERS: PCP Student in an Organized Health Care Education/Training Program; Visit Provider Student in an Organized Health Care Education/Training Program | DX: M05.9 Rheumatoid arthritis with rheumatoid factor, unspecified (principal); M25.561 Pain in right knee; G89.29 Other chronic pain; Z79.899 Other long term (current) drug therapy | CPT/HCPCS: 99212 ==

== ENCOUNTER 2022-12-25 14:50 | Outpatient (REF) | payer MEDICAID, SELFPAY ==
--- NOTE | ~2022-12-25 | MR_ITS ---
EXAMINATION: MR KNEE WITHOUT CONTRAST, RIGHT CLINICAL INFORMATION: Right knee pain. COMPARISON: Radiographs dated 12/26/2010. TECHNIQUE: MRI of the knee without contrast was performed using routine sequences on a high-field scanner. FINDINGS: MENISCI: Medial Meniscus: Intact Lateral Meniscus: Intact LIGAMENTS: Cruciate: Intact Collateral: Intact EXTENSOR MECHANISM: A large enthesopathic spur is present at the quadriceps tendon insertion on the patella. There is a smaller spur at the patellar tendon insertion on the tibial tuberosity. Tendons and retinacula are intact. ARTICULAR CARTILAGE/BONE: Patellofemoral Compartment: Small chondral fissures are present at the median ridge at the patella and inferior aspect of the medial trochlear facet. Articular cartilage is otherwise well-preserved. Medial Compartment: There is mild chondral thinning and surface irregularity at the lateral half of the medial femoral condyle posterior weightbearing surface. Lateral Compartment: A chondral fissure is suspected at the lateral tibial plateau centrally with associated subchondral cystic change. JOINT FLUID AND BURSAE: No joint effusion or Molina's cyst. Focal edema signal is present in the subcutaneous fat laterally overlying the fibular head. MR/MR knee RT wo con IMPRESSION: 1. Intact menisci. 2. Minimal tricompartmental osteoarthritis.
== END 2022-12-25 14:51 | disposition home or self-care (01) ==
LOC: HO.MRI 14:50
PROVIDERS: PCP Student in an Organized Health Care Education/Training Program; Visit Provider Student in an Organized Health Care Education/Training Program
DX: M23.91 Unspecified internal derangement of right knee (principal)
CPT/HCPCS: 73721

== ENCOUNTER 2023-01-16 09:50 | Outpatient (REF) | payer MEDICAID, SELFPAY ==
[2023-01-16 10:00] LABS: MANUAL DIFF FLAG NO
[2023-01-16 10:35] LABS: Basophils Percent Auto 0.6 % (0-2); Eosinophils Absolute Auto 0.1 X10*3/uL (0.0-0.4); Eosinophils Percent Auto 1.7 % (0-4); Hematocrit 39.5 % (37.0-47.0); Hemoglobin 12.7 g/dl (12.0-16.0); Imm Gran Abs Auto 0.01 X10*3/uL (0.00-0.03); Imm Gran Pct Auto 0.2 % (0.0-0.4); Lymphocytes Absolute Auto 1.9 X10*3/uL (1.2-4.9); Lymphocytes Percent Auto 41.7 % (20-40); Mean Corpuscular HGB Conc 32.2 g/dl (31.0-35.0); Mean Corpuscular Hemoglobin 30.3 pg (27.0-33.0); Mean Corpuscular Volume 94.3 fL (80.0-98.0); Mean Platelet Volume 10.2 fL (9.4-12.3); Monocytes Absolute Auto 0.5 X10*3/uL (0.1-1.2); Monocytes Percent Auto 9.7 % (2-11); Neutrophils Absolute Auto 2.1 x10*3/uL (2.0-8.3); Neutrophils Percent Auto 46.1 % (45-73); Platelet Count 267 X10*3/uL (160-400); Red Blood Count 4.19 X10*6/uL (4.20-5.50); Red Cell Distribution Width 14.7 % (11.0-16.0); White Blood Count 4.7 X10*3/uL (4.8-10.8)
[2023-01-16 11:07] LABS: Alanine Aminotransferase 23 U/L (0-31); Albumin Level 4.2 g/dL (3.5-5.0); Alkaline Phosphatase 127 U/L (39-117); Anion Gap 14 (12-20); Aspartate Amino Transferase 23 U/L (5-31); Bilirubin Total 0.5 mg/dL (0.0-1.0); Blood Urea Nitrogen 17 mg/dL (9-16); Calcium 9.4 mg/dL (8.4-10.2); Carbon Dioxide 28 mmol/L (22-29); Chloride 105 mmol/L (96-108); Estimated Glomerular Filt Rate > 60; Glucose Random 122 mg/dL (60-115); Potassium 3.7 mmol/L (3.3-5.1); Sodium 143 mmol/L (135-145); Total Protein 7.9 g/dL (6.5-8.0)
[2023-01-16 11:13] LABS: Erythrocyte Sedimentation Rate 19 MM/HR (0-20)
== END 2023-01-16 09:51 | disposition home or self-care (01) ==
LOC: HO.LAB 09:50
PROVIDERS: PCP Student in an Organized Health Care Education/Training Program; Visit Provider Student in an Organized Health Care Education/Training Program
DX: M05.9 Rheumatoid arthritis with rheumatoid factor, unspecified (principal)
CPT/HCPCS: 36415; 80053; 85025; 85652; 86140

== ENCOUNTER 2023-02-26 10:11 | Outpatient (AMB) | payer MEDICAID, SELFPAY ==
--- NOTE | 2023-02-26 10:17 | MHC.OFFVIS ---
Intake Vital Signs 02/26/23 10:18 Height 5 ft 4 in Weight 190 lb 0.615 oz BMI 32.6 BP 128/62 Blood Pressure Location Rt brachial Position Sitting Temp 97.2 F Temp Source Skin Intake Visit Reasons: RA Intake Note: Pt last seen 10/17/22 presents today for follow up and test results. Denies recent surgery or hospitalization. Denies new or increased pain. Tylenol, mtx and plaquenil need refill. Next Ophth appt 04/03/23. Community Nutrition Educator Required: Yes Community Nutrition Educator Name: Sandy [id number] Accompanied by: Self / Same As Patient Allergies oxycodone [Percocet] Allergy (Intermediate, Verified 02/26/23 10:22) vomiting tramadol Allergy (Intermediate, Verified 02/26/23 10:22) Vomiting acetaminophen [Percocet] Allergy (Unknown, Verified 02/26/23 10:22) vomiting Aspirin Allergy (Intermediate, Uncoded 02/26/23 10:22) rash Percocet Allergy (Intermediate, Uncoded 02/26/23 10:22) vomiting SHELLFISH Allergy (Intermediate, Uncoded 02/26/23 10:22) RASH Medication List - Last Reconciled 02/26/23 by Yasmin Barber MD acetaminophen ER (Tylenol Arthritis Pain) 650 mg PO Q8H PRN amitriptyline 75 mg PO BEDTIME atorvastatin 40 mg PO DAILY buspirone 20 mg PO BID cholecalciferol (vitamin D3) 25 mcg PO DAILY citalopram 40 mg PO DAILY folic acid 1 mg PO DAILY hydrochlorothiazide 25 mg PO DAILY hydroxychloroquine 200 mg PO DAILY levothyroxine 125 mcg PO DAILY methotrexate sodium 5 mg (2 x 2.5 mg) PO QWEEK omeprazole 20 mg PO DAILY quetiapine 50 mg PO BEDTIME HPI HPI Comments History of Present Illness Details This is a 57-year-old female with seropositive RA who presents for follow-up. On methotrexate 5 mg once weekly and hydroxychloroquine 200 mg daily. She states that she continues to have intermittent pain in her wrists, intermittent pain in her fingers and knees. She takes Tylenol once or twice a week as needed for joint pain. . Follows up regularly with Ophthalmology, she is due for an appointment next month. [facility] Medical History Seropositive rheumatoid arthritis Dyslipidemia Hypothyroidism Surgical History History of thyroid surgery History of biopsy Family History Father Family history of prostate cancer in father Mother Alzheimer disease Social History Household Members: Family Housing: House Alcohol intake: never Patient Tobacco Use Status: Never used Tobacco Review of Systems [facility] Reports arthralgias and Reports stiffness Physical Exam Vital Signs: Last Vital Signs Temp 97.2 F 02/26/23 10:18 BP 128/62 02/26/23 10:18 BMI result Body Mass Index 32.6 Const General: cooperative, healthy appearing and comfortable Nutritional Appearance: obese Orientation/consciousness: patient oriented x3 Limitations: no limitations HEENT Head: Yes normocephalic and Yes atraumatic Mouth: moist mucous membranes Resp Effort & Inspection: normal respiratory effort and able to speak in complete sentences Neuro General: patient oriented x3 Extrem Other: Mild osteoarthritic changes in both hands with few Ciara's nodes, right middle finger Ciara's nodes slightly tender to palpation Minimal swelling and tenderness on the ulnar aspect of the right wrist, no pain with flexion and extension of wrist Right knee pain with full flexion and extension Results Reviewed Results Reviewed: Laboratory Tests 02/03/2022 EXAMINATION: XR KNEE, LEFT CLINICAL INFORMATION: M25.562 - Pain in left knee? COMPARISON: Radiographs left knee 12/26/2010? TECHNIQUE: Four views of the left knee. FINDINGS: No fracture, dislocation, or destructive process. The medial and lateral knee joint compartments show no focal narrowing or subchondral sclerosis. No erosive change or chondrocalcinosis. Axial view patella shows mild narrowing lateral patellofemoral joint without lateralization of the patella or patellar tilting. There is spurring at the quadriceps insertion patella. Hoffa's fat pad appears normal. There is no suprapatellar effusion. The deep infrapatellar recess is preserved.? XR/XR knee LT 3V IMPRESSION: 1. Mild narrowing lateral patellofemoral joint. 2. Spurring at quadriceps insertion patella. 3. No joint narrowing or erosive change. No effusion. 02/03/2022 EXAMINATION: XR HAND, RIGHT XR HAND, LEFT CLINICAL INFORMATION: Pain in hands.? COMPARISON: Bilateral wrist radiographs 11/28/2016? TECHNIQUE: Each hand is imaged in 3 views. There are total of 6 views.? FINDINGS: Right: Bony mineralization within normal. No periarticular demineralization. The ulnar variance is neutral. Pronator quadratus fat pad is normal. The carpus shows no joint narrowing or erosive change or chondrocalcinosis. The MCP and PIP joints are unremarkable. Borderline narrowing second through fifth DIP joints. No erosive change. Left: Bony mineralization within normal. No periarticular demineralization. The ulnar variance is neutral. Pronator quadratus fat pad is normal. The carpus shows no joint narrowing or erosive change or chondrocalcinosis. The MCP and PIP joints are unremarkable. Borderline narrowing second through fifth DIP joints. No erosive change. XR/XR hand RT min 3V IMPRESSION: -Bilateral borderline narrowing 2nd-5th DIP joints. No erosive changes. ? -Bilateral carpus and MCP joints are unremarkable. Assessment & Plan Assessment & Plan (1) Seropositive rheumatoid arthritis: Comment: plaquenil 05/2011- present Code(s): M05.9 - Rheumatoid arthritis with rheumatoid factor, unspecified Plan: Patient with seropositive RA (RF++ CCP++). On MTX 5 mg weekly, Plaquenil 200 mg daily and folic acid.? Methotrexate dose lowered in the past due to leukopenia.? Patient's RA is well controlled on current meds. Continue methotrexate 5 mg daily, hydroxychloroquine 20 mg daily and folic acid 1 mg daily Labs before next visit in 4 month. 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 (4) Chronic pain of right knee: Code(s): M25.561 - Pain in right knee; G89.29 - Other chronic pain Plan: Patient tripped over a toy back in 05/08, fell on her right knee, heard a snap and since then had some inferomedial knee pain, right knee occasionally gives out. Due to persistence of patient's right knee pain, right knee MRI was ordered to rule out internal derangement. Right knee MRI was unremarkable except for tricompartmental osteoarthritis. Patient's knee pain has improved. I reassured patient Plan I spent 26 minutes reviewing patient's chart, evaluating patient, ordering diagnostic workup, counseling patient and documenting in the chart Orders: Orders Comprehensive Met. Panel 4 Months Z79.89 - Other keno terminal operator (current) drug therapy Erythrocyte Sedimentation Rate 4 Months Z79.89 - Other keno terminal operator (current) drug therapy Complete Blood Count Auto Diff 4 Months Z79.89 - Other keno terminal operator (current) drug therapy C Reactive Protein 4 Months Z79.89 - Other keno terminal operator (current) drug therapy Hepatitis A,B,C Profile 4 Months Z11.59 - Encounter for screening for other viral diseases Medications: Refilled methotrexate sodium 5 mg (2 x 2.5 mg) PO QWEEK 32 tabs 0RF M05.9 - Rheumatoid arthritis with rheumatoid factor, unspecified hydroxychloroquine 200 mg PO DAILY 90 tabs 1RF M05.9 - Rheumatoid arthritis with rheumatoid factor, unspecified acetaminophen ER (Tylenol Arthritis Pain) 650 mg PO Q8H PRN 30 tabs 1RF pain folic acid 1 mg PO DAILY 90 tabs 1RF Coding Level of Care Code Est Pt Level 4 (29922) Diagnoses Seropositive rheumatoid arthritis M05.9 halfway methotrexate user Z79. Long-term use of Plaquenil Z. Chronic pain of right knee M25.561; G89.29
[2023-02-26 10:18] VITALS: BP 128/62; TEMP 36.2; BMI 32.6
== END 2023-02-26 10:44 | disposition home or self-care (01) ==
PROVIDERS: PCP Student in an Organized Health Care Education/Training Program; Referring Provider Student in an Organized Health Care Education/Training Program; Visit Provider Student in an Organized Health Care Education/Training Program
DX: M05.79 Rheumatoid arthritis with rheumatoid factor of multiple sites without organ or systems involvement (principal); M25.561 Pain in right knee; G89.29 Other chronic pain; Z79.899 Other long term (current) drug therapy
CPT/HCPCS: 99214

== ENCOUNTER → 2023-02-26 10:11 | Outpatient (BNVA) | payer MEDICAID, SELFPAY | PROVIDERS: PCP Student in an Organized Health Care Education/Training Program; Visit Provider Student in an Organized Health Care Education/Training Program | DX: M05.9 Rheumatoid arthritis with rheumatoid factor, unspecified (principal); M25.561 Pain in right knee; G89.29 Other chronic pain; Z79.899 Other long term (current) drug therapy | CPT/HCPCS: 99212 ==

== ENCOUNTER 2023-08-31 09:59 | Outpatient (REF) | payer MEDICAID, SELFPAY ==
[2023-08-31 10:20] LABS: MANUAL DIFF FLAG NO
[2023-08-31 10:40] LABS: Basophils Percent Auto 0.7 % (0-2); Eosinophils Absolute Auto 0.1 X10*3/uL (0.0-0.4); Eosinophils Percent Auto 1.8 % (0-4); Hematocrit 42.1 % (37.0-47.0); Hemoglobin 13.9 g/dl (12.0-16.0); Imm Gran Abs Auto 0.01 X10*3/uL (0.00-0.03); Imm Gran Pct Auto 0.2 % (0.0-0.4); Lymphocytes Absolute Auto 1.9 X10*3/uL (1.2-4.9); Lymphocytes Percent Auto 43.1 % (20-40); Mean Corpuscular Hemoglobin 30.6 pg (27.0-33.0); Mean Corpuscular Volume 92.7 fL (80.0-98.0); Mean Platelet Volume 10.3 fL (9.4-12.3); Monocytes Absolute Auto 0.4 X10*3/uL (0.1-1.2); Monocytes Percent Auto 9.8 % (2-11); Neutrophils Percent Auto 44.4 % (45-73); Platelet Count 257 X10*3/uL (160-400); Red Blood Count 4.54 X10*6/uL (4.20-5.50); Red Cell Distribution Width 12.7 % (11.0-16.0); White Blood Count 4.5 X10*3/uL (4.8-10.8)
[2023-08-31 11:08] LABS: Alanine Aminotransferase 25 U/L (0-31); Albumin Level 4.5 g/dL (3.5-5.0); Alkaline Phosphatase 106 U/L (39-117); Anion Gap 15 (12-20); Aspartate Amino Transferase 20 U/L (5-31); Bilirubin Total 0.7 mg/dL (0.0-1.0); Blood Urea Nitrogen 12 mg/dL (9-16); C Reactive Protein 0.17 mg/dL (< or = 0.50); Carbon Dioxide 28 mmol/L (22-29); Chloride 102 mmol/L (96-108); Estimated Glomerular Filt Rate > 60; Glucose Random 109 mg/dL (60-115); Potassium 3.3 mmol/L (3.3-5.1); Sodium 142 mmol/L (135-145)
[2023-08-31 11:20] LABS: HBS Num1 0.66 mIU/mL (0-7.99); HBc Num1 0.11 S/CO (0.00-0.79); HBsAGNum1 0.43 S/CO (0.00-0.99); Hepatitis A Antibody IgM 0.12 Index (0-0.79); Hepatitis B Core Antibody Nonreactive (Nonreactive); Hepatitis B Surface Antigen Negative (Negative); ~HepC Num1 0.14 S/CO (0.00-0.79); ~Hepatitis A Antibody IgM Nonreactive (Nonreactive); ~Hepatitis B Surface Antibody NONREACTIVE (Nonreactive); ~Hepatitis C Antibody Nonreactive (Nonreactive)
[2023-08-31 11:29] LABS: Erythrocyte Sedimentation Rate 20 MM/HR (0-20)
== END 2023-08-31 10:00 | disposition home or self-care (01) ==
LOC: HO.LAB 09:59
PROVIDERS: PCP Student in an Organized Health Care Education/Training Program; Visit Provider Student in an Organized Health Care Education/Training Program
DX: Z79.899 Other long term (current) drug therapy (principal); Z11.59 Encounter for screening for other viral diseases
CPT/HCPCS: 36415; 80053; 85025; 85652; 86140; 86704; 86706; 86709; 86803; 87340

== ENCOUNTER 2023-09-03 07:40 | Outpatient (AMB) | payer MEDICAID, SELFPAY ==
--- NOTE | 2023-09-03 07:41 | MHC.OFFVIS ---
Vital Signs 09/03/23 07:47 Height 5 ft 4 in Weight 176 lb 2.389 oz BMI 30.2 BP 124/68 Blood Pressure Location Rt brachial Position Sitting Respiration 16 Pulse 78 Pulse Source Pulse Oximeter Pulse Oximetry (%) 98 Oxygen Delivery Method Room Air Intake Visit Reasons: Ra/CM Intake Note: Patient presents for RA. Chief Legal Officer Required: Yes Chief Legal Officer Services: Chief Legal Officer Present Chief Legal Officer Name: Rufina [id number] Allergies oxycodone [Percocet] Allergy (Intermediate, Verified 09/03/23 07:45) vomiting tramadol Allergy (Intermediate, Verified 09/03/23 07:45) Vomiting acetaminophen [Percocet] Allergy (Unknown, Verified 09/03/23 07:45) vomiting Aspirin Allergy (Intermediate, Uncoded 02/26/23 10:22) rash Percocet Allergy (Intermediate, Uncoded 02/26/23 10:22) vomiting SHELLFISH Allergy (Intermediate, Uncoded 02/26/23 10:22) RASH Medication List - Last Reconciled 09/03/23 by Yasmin Barber MD acetaminophen ER 650 mg PO Q8H PRN amitriptyline 75 mg PO BEDTIME atorvastatin 40 mg PO DAILY buspirone 20 mg PO BID cholecalciferol (vitamin D3) 25 mcg PO DAILY citalopram 40 mg PO DAILY folic acid 1 mg PO DAILY hydrochlorothiazide 25 mg PO DAILY hydroxychloroquine 200 mg PO DAILY levothyroxine 125 mcg PO DAILY methotrexate sodium 5 mg (2 x 2.5 mg) PO QWEEK omeprazole 20 mg PO DAILY quetiapine 50 mg PO BEDTIME HPI Comments Details: This is a 58-year-old female with seropositive RA who presents for follow-up. On methotrexate 5 mg once weekly and hydroxychloroquine 200 mg daily. She states that she is doing reasonably well overall. Last 2-3 weeks she has been having some pain and stiffness of her left shoulder. She does not recall any trauma or overuse. She has been having pain in her left foot. This is chronic. She was evaluated by senior marketing manager last year and she received 3 cortisone injections, they provided short term relief and was told that she will likely need surgery. [facility] Medical History Seropositive rheumatoid arthritis Dyslipidemia Hypothyroidism Surgical History History of thyroid surgery History of biopsy Family History Father Family history of prostate cancer in father Mother Alzheimer disease Social History Household Members: Family Housing: House Alcohol intake: never Patient Tobacco Use Status: Never used Tobacco Review of Systems Musc Reports arthralgias, Reports limited range of motion and Reports stiffness Physical Exam Vital Signs: Last Vital Signs Pulse 78 09/03/23 07:47 Resp 16 09/03/23 07:47 BP 124/68 09/03/23 07:47 Pulse Ox 98 09/03/23 07:47 Oxygen Delivery Method Room Air 09/03/23 07:47 BMI result Body Mass Index 30.2 Const General: cooperative, healthy appearing and comfortable Nutritional Appearance: obese Orientation/consciousness: patient oriented x3 Limitations: no limitations HEENT Head: Yes normocephalic and Yes atraumatic Mouth: moist mucous membranes Resp Effort & Inspection: normal respiratory effort and able to speak in complete sentences Auscultation: clear to auscultation bilaterally Cardio Rate: regular rate Rhythm: regular rhythm Skin General skin exam: no rashes or lesions noted Neuro General: patient oriented x3 Extrem Other: Limited range of motion of her left shoulder Positive empty can test and lift-off test on the left negative Speed's test on the left Mild osteoarthritic changes in both hands with few Ciara's nodes, right middle finger Ciara's nodes slightly tender to palpation Hard swelling on the left Achilles tendon insertion site, mildly tender, not swollen or red Results Reviewed Results Reviewed: Laboratory Tests 02/03/2022 EXAMINATION: XR KNEE, LEFT CLINICAL INFORMATION: M25.562 - Pain in left knee? COMPARISON: Radiographs left knee 12/26/2010? TECHNIQUE: Four views of the left knee. FINDINGS: No fracture, dislocation, or destructive process. The medial and lateral knee joint compartments show no focal narrowing or subchondral sclerosis. No erosive change or chondrocalcinosis. Axial view patella shows mild narrowing lateral patellofemoral joint without lateralization of the patella or patellar tilting. There is spurring at the quadriceps insertion patella. Hoffa's fat pad appears normal. There is no suprapatellar effusion. The deep infrapatellar recess is preserved.? XR/XR knee LT 3V IMPRESSION: 1. Mild narrowing lateral patellofemoral joint. 2. Spurring at quadriceps insertion patella. 3. No joint narrowing or erosive change. No effusion. 02/03/2022 EXAMINATION: XR HAND, RIGHT XR HAND, LEFT CLINICAL INFORMATION: Pain in hands.? COMPARISON: Bilateral wrist radiographs 11/28/2016? TECHNIQUE: Each hand is imaged in 3 views. There are total of 6 views.? FINDINGS: Right: Bony mineralization within normal. No periarticular demineralization. The ulnar variance is neutral. Pronator quadratus fat pad is normal. The carpus shows no joint narrowing or erosive change or chondrocalcinosis. The MCP and PIP joints are unremarkable. Borderline narrowing second through fifth DIP joints. No erosive change. Left: Bony mineralization within normal. No periarticular demineralization. The ulnar variance is neutral. Pronator quadratus fat pad is normal. The carpus shows no joint narrowing or erosive change or chondrocalcinosis. The MCP and PIP joints are unremarkable. Borderline narrowing second through fifth DIP joints. No erosive change. XR/XR hand RT min 3V IMPRESSION: -Bilateral borderline narrowing 2nd-5th DIP joints. No erosive changes. ? -Bilateral carpus and MCP joints are unremarkable. Assessment & Plan Assessment & Plan (1) Seropositive rheumatoid arthritis: Comment: plaquenil 05/2011- present Code(s): M05.9 - Rheumatoid arthritis with rheumatoid factor, unspecified Category: Medical Plan: Patient with seropositive RA (RF++ CCP++). On MTX 5 mg weekly, Plaquenil 200 mg daily and folic acid.? Methotrexate dose lowered in the past due to leukopenia.? Patient's RA is well controlled on current meds. Continue methotrexate 5 mg daily, hydroxychloroquine 20 mg daily and folic acid 1 mg daily Labs before next visit in 4 month. 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: Code(s): Z79.899 - Other longterm (current) drug therapy Category: Medical Plan: Monitor safety labs (3) Long-term use of Plaquenil: Code(s): Z79.899 - Other longterm (current) drug therapy Category: Medical Plan: Follow-up regularly with Ophthalmology (4) Rotator cuff arthropathy of left shoulder: Code(s): M12.812 - Other specific arthropathies, not elsewhere classified, left shoulder Category: Medical Plan: Provided patient with home exercises, if no improvement can consider formal physical therapy or injection (5) Calcaneal spur, left: Code(s): M77.32 - Calcaneal spur, left foot Category: Medical Plan: Was evaluated last year by senior marketing manager and received 3 cortisone injections which provided short-lived relief and she was told that she will likely need surgery. I think she likely has enthesophyte. Follow-up with senior marketing manager Plan I spent 40 minutes reviewing patient's chart, evaluating patient, ordering diagnostic workup, counseling patient and documenting in the chart Orders: Orders Complete Blood Count Auto Diff 4 Months M05.9 - Rheumatoid arthritis with rheumatoid factor, unspecified, Z79.899 - Other longterm (current) drug therapy C Reactive Protein 4 Months M05.9 - Rheumatoid arthritis with rheumatoid factor, unspecified, Z79.899 - Other longterm (current) drug therapy Erythrocyte Sedimentation Rate 4 Months M05.9 - Rheumatoid arthritis with rheumatoid factor, unspecified, Z79.899 - Other terminal block assembler (current) drug therapy Comprehensive Met. 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
[2023-09-03 07:47] VITALS: BP 124/68; PULSE 78; RESP 16; O2SAT 98; BMI 30.2
== END 2023-09-03 08:06 | disposition home or self-care (01) ==
PROVIDERS: PCP Student in an Organized Health Care Education/Training Program; Visit Provider Student in an Organized Health Care Education/Training Program
DX: M05.79 Rheumatoid arthritis with rheumatoid factor of multiple sites without organ or systems involvement (principal); Z79.899 Other long term (current) drug therapy; M12.812 Other specific arthropathies, not elsewhere classified, left shoulder; M77.32 Calcaneal spur, left foot
CPT/HCPCS: 99215

== ENCOUNTER → 2023-09-03 07:40 | Outpatient (BNVA) | payer MEDICAID, SELFPAY | PROVIDERS: PCP Student in an Organized Health Care Education/Training Program; Visit Provider Student in an Organized Health Care Education/Training Program | DX: M05.9 Rheumatoid arthritis with rheumatoid factor, unspecified (principal); M12.812 Other specific arthropathies, not elsewhere classified, left shoulder; M77.32 Calcaneal spur, left foot; Z79.899 Other long term (current) drug therapy | CPT/HCPCS: 99212 ==

== ENCOUNTER 2024-01-15 08:22 | Outpatient (REF) | payer MEDICAID, SELFPAY ==
[2024-01-15 08:36] LABS: MANUAL DIFF FLAG NO
[2024-01-15 08:50] LABS: Basophils Percent Auto 0.7 % (0-2); Eosinophils Absolute Auto 0.1 X10*3/uL (0.0-0.4); Eosinophils Percent Auto 1.8 % (0-4); Hematocrit 38.1 % (37.0-47.0); Hemoglobin 12.6 g/dl (12.0-16.0); Imm Gran Abs Auto 0.01 X10*3/uL (0.00-0.03); Imm Gran Pct Auto 0.2 % (0.0-0.4); Lymphocytes Absolute Auto 2.1 X10*3/uL (1.2-4.9); Lymphocytes Percent Auto 46.8 % (20-40); Mean Corpuscular HGB Conc 33.1 g/dl (31.0-35.0); Mean Corpuscular Hemoglobin 30.8 pg (27.0-33.0); Mean Corpuscular Volume 93.2 fL (80.0-98.0); Monocytes Absolute Auto 0.5 X10*3/uL (0.1-1.2); Monocytes Percent Auto 9.9 % (2-11); Neutrophils Absolute Auto 1.8 x10*3/uL (2.0-8.3); Neutrophils Percent Auto 40.6 % (45-73); Platelet Count 265 X10*3/uL (160-400); Red Blood Count 4.09 X10*6/uL (4.20-5.50); White Blood Count 4.5 X10*3/uL (4.8-10.8)
[2024-01-15 08:59] LABS: Estimated Average Glucose 123 mg/dL; Hemoglobin A1C 131.1537 umol/L; Hemoglobin A1c % 5.9 % (<6.0); Total Hemoglobin (HGBA1C) 3210.2604 umol/L
[2024-01-15 09:29] LABS: Erythrocyte Sedimentation Rate 14 MM/HR (0-20)
[2024-01-15 09:45] LABS: Alanine Aminotransferase 25 U/L (0-31); Albumin Level 4.1 g/dL (3.5-5.0); Alkaline Phosphatase 111 U/L (39-117); Anion Gap 12 (12-20); Aspartate Amino Transferase 25 U/L (5-31); Bilirubin Direct 0.2 mg/dL (0.0-0.5); Bilirubin Total 0.4 mg/dL (0.0-1.0); Blood Urea Nitrogen 16 mg/dL (9-16); C Reactive Protein < 0.10 mg/dL (< or = 0.50); Calcium 9.2 mg/dL (8.4-10.2); Carbon Dioxide 27 mmol/L (22-29); Chloride 106 mmol/L (96-108); Cholesterol 142 mg/dL (<200); Estimated Glomerular Filt Rate > 60; Glucose Random 108 mg/dL (60-115); HDL Cholesterol 45 mg/dL (>40); LDL Cholesterol Calculated 80 mg/dL (<100); Potassium 3.3 mmol/L (3.3-5.1); Sodium 142 mmol/L (135-145); Total Protein 7.2 g/dL (6.5-8.0); Triglycerides 85 mg/dL (<150)
[2024-01-15 10:01] LABS: TSH reflex Free T4 0.08 uIU/mL (0.32-4.0)
[2024-01-15 10:52] LABS: Free T4 (Free Thyroxine) 1.28 ng/dL (0.71-1.85)
== END 2024-01-15 08:23 | disposition home or self-care (01) ==
LOC: HO.LAB 08:22
PROVIDERS: Absent Provider Student in an Organized Health Care Education/Training Program; PCP Student in an Organized Health Care Education/Training Program; Visit Provider Student in an Organized Health Care Education/Training Program
DX: M05.9 Rheumatoid arthritis with rheumatoid factor, unspecified (principal); E03.9 Hypothyroidism, unspecified; I10 Essential (primary) hypertension; Z79.899 Other long term (current) drug therapy
CPT/HCPCS: 36415; 80053; 80061; 80076; 82248; 83036; 84439; 84443; 85025; 85652; 86140

== ENCOUNTER 2024-01-20 14:27 | Outpatient (AMB) | payer MEDICAID, SELFPAY ==
--- NOTE | 2024-01-20 14:31 | A.OFFVIS_ITS ---
Vital Signs 01/20/24 14:36 Height 5 ft 4 in Weight 174 lb 6.17 oz BMI 29.9 BP 112/70 Blood Pressure Location Rt brachial Position Sitting Respiration 16 Pulse 90 Pulse Source Pulse Oximeter Pulse Oximetry (%) 97 Oxygen Delivery Method Room Air Intake Visit Reasons: RA/cm Intake Note: Patient presents for RA. For a month now I been feeling pain on the back of my neck and I need a new referral to a new Orthopedic. Band Director Required: Yes Band Director Language: Public Health Educator Services: Band Director Present Band Director Name: Yolanda [id number] Information Interpreted: non-clinical & clinical Allergies oxycodone [Percocet] Allergy (Intermediate, Verified 01/20/24 14:35) vomiting tramadol Allergy (Intermediate, Verified 01/20/24 14:35) Vomiting acetaminophen [Percocet] Allergy (Unknown, Verified 01/20/24 14:35) vomiting Aspirin Allergy (Intermediate, Uncoded 02/26/23 10:22) rash Percocet Allergy (Intermediate, Uncoded 02/26/23 10:22) vomiting SHELLFISH Allergy (Intermediate, Uncoded 02/26/23 10:22) RASH Medication List - Last Reconciled 01/20/24 by Yasmin Barber MD acetaminophen ER 650 mg PO Q8H PRN amitriptyline 75 mg PO BEDTIME atorvastatin 40 mg PO DAILY buspirone 20 mg PO BID cholecalciferol (vitamin D3) 25 mcg PO DAILY citalopram 40 mg PO DAILY cyclobenzaprine 5 mg PO TID PRN folic acid 1 mg PO DAILY hydrochlorothiazide 25 mg PO DAILY hydroxychloroquine 200 mg PO DAILY levothyroxine 125 mcg PO DAILY methotrexate sodium 5 mg (2 x 2.5 mg) PO QWEEK omeprazole 20 mg PO DAILY quetiapine 50 mg PO BEDTIME HPI Comments Details: This is a 58-year-old female with seropositive RA who presents for follow-up. On methotrexate 5 mg once weekly and hydroxychloroquine 200 mg daily. Over the last 2-3 weeks she has been having bilateral neck pain, triggered when she moves her neck [id number]. She has tried a heating pad and Tylenol without much relief. She was supposed to have surgery on her right foot. 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 She would like a referral to a different back roll lathe operator [facility] Medical History Seropositive rheumatoid arthritis Dyslipidemia Hypothyroidism Surgical History History of thyroid surgery History of biopsy Family History Father Family history of prostate cancer in father Mother Alzheimer disease Social History Household Members: Family Housing: House Alcohol intake: never Patient Tobacco Use Status: Never used Tobacco Review of Systems ENT Reports neck pain Musc Reports arthralgias, Reports neck pain and Reports stiffness Physical Exam Vital Signs: Last Vital Signs Pulse 90 01/20/24 14:36 Resp 16 01/20/24 14:36 BP 112/70 01/20/24 14:36 Pulse Ox 97 01/20/24 14:36 Oxygen Delivery Method Room Air 01/20/24 14:36 BMI result Body Mass Index 29.9 Const General: cooperative, healthy appearing and comfortable Nutritional Appearance: obese Orientation/consciousness: patient oriented x3 Limitations: no limitations HEENT Head: Yes normocephalic and Yes atraumatic Mouth: moist mucous membranes Resp Effort & Inspection: normal respiratory effort and able to speak in complete sentences Skin General skin exam: no rashes or lesions noted Neuro General: patient oriented x3 Extrem Other: Bilateral upper trapezius and cervical paraspinal muscle tenderness Neck pain with neck rotation to left and right Mild osteoarthritic changes in both hands with few Ciara's nodes, right middle finger Ciara's nodes slightly tender to palpation Hard swelling on the left Achilles tendon insertion site, mildly tender, not swollen or red Assessment & Plan Assessment & Plan (1) Seropositive rheumatoid arthritis: Comment: ++RF++CCP plaquenil 05/2011- present MTX start date unknown Code(s): M05.9 - Rheumatoid arthritis with rheumatoid factor, unspecified Category: Medical Plan: Patient with seropositive RA (RF++ CCP++). On MTX 5 mg weekly, Plaquenil 200 mg daily and folic acid.? Methotrexate dose lowered in the past due to leukopenia.? Patient's RA is well controlled on current meds. Continue current meds Labs before next visit in 4 month. 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 I placed another referral to Podiatry (5) Cervical paraspinal muscle spasm: Code(s): M62.838 - Other muscle spasm Category: Medical Plan: Flexeril trial Referred to PT Plan I spent 25 minutes reviewing patient's chart, evaluating patient, ordering diagnostic workup, counseling patient and documenting in the chart Orders: Orders PT Evaluation and Treatment Today M47.22 - Other spondylosis with radiculopath y, cervical region, M62.838 - Other muscle spasm Comprehensive Met. Panel 4 Months M05.9 - Rheumatoid arthritis with rheumatoid factor, unspecified, Z79.899 - Other group home (current) drug therapy Complete Blood Count Auto Diff 4 Months M05.9 - Rheumatoid arthritis with rheumatoid factor, unspecified, Z79.899 - Other long term care social worker (current) drug therapy C Reactive Protein 4 Months M05.9 - Rheumatoid arthritis with rheumatoid factor, unspecified, Z79.899 - Other long term care social worker (current) drug therapy Erythrocyte Sedimentation Rate 4 Months M05.9 - Rheumatoid arthritis with rheumatoid factor, unspecified, Z79.899 - Other long term care social worker (current) drug therapy Referrals Podiatry Referral M77.31 - Calcaneal spur, right foot Medications: New cyclobenzaprine Can cause dizziness/lightheadedness/grogginess. Please do not drive or operate heavy machinery if feeling as such 5 mg PO TID PRN 21 tabs 0RF muscle spasm Refilled methotrexate sodium 5 mg (2 x 2.5 mg) PO QWEEK 24 tabs 1RF M05.9 - Rheumatoid arthritis with rheumatoid factor, unspecified hydroxychloroquine 200 mg PO DAILY 90 tabs 1RF M05.9 - Rheumatoid arthritis with rheumatoid factor, unspecified Coding Level of Care Code Est Pt Level 4 (18431) Complex EM visit Add On G2211 Diagnoses Seropositive rheumatoid arthritis M05.9 assisted methotrexate user Z79.899 Long-term use of Plaquenil Z79.899 Calcaneal spur, right M77.31 Cervical paraspinal muscle spasm M62.838
[2024-01-20 14:36] VITALS: BP 112/70; PULSE 90; RESP 16; O2SAT 97; BMI 29.9
== END 2024-01-20 14:54 | disposition home or self-care (01) ==
PROVIDERS: PCP Student in an Organized Health Care Education/Training Program; Visit Provider Student in an Organized Health Care Education/Training Program
DX: M05.79 Rheumatoid arthritis with rheumatoid factor of multiple sites without organ or systems involvement (principal); Z79.899 Other long term (current) drug therapy; M77.31 Calcaneal spur, right foot; M62.838 Other muscle spasm
CPT/HCPCS: 99214

== ENCOUNTER → 2024-01-20 14:27 | Outpatient (BNVA) | payer MEDICAID, SELFPAY | PROVIDERS: PCP Student in an Organized Health Care Education/Training Program; Visit Provider Student in an Organized Health Care Education/Training Program | DX: M05.9 Rheumatoid arthritis with rheumatoid factor, unspecified (principal); M77.31 Calcaneal spur, right foot; M62.838 Other muscle spasm; Z79.631 Long term (current) use of antimetabolite agent; Z79.899 Other long term (current) drug therapy | CPT/HCPCS: 99212 ==

== ENCOUNTER 2024-09-15 08:45 | Outpatient (REF) | payer MEDICAID, SELFPAY ==
[2024-09-15 08:55] LABS: MANUAL DIFF FLAG NO
--- OUTSIDE RECORDS SUMMARY | 2024-09-15 08:55 | XMS_ITS | Encounter Summary ---
Author Organization [employer] Address [address] [place] [address] Care Team Providers Care Ed Educational Aide Name Role Phone Angie Montelongo MD Primary Care Provider [phone] Reason for Visit * Reason Onset Date Comments PT1 02/19/2022 Encounter Details Date Type Department Care Team (Late Contact Info) Description 02/19/2022 Telephone [facility] [address] [place], [place] [phone] Angie Montelongo MD [address] [place] [address] PT1 Social History Tobacco Use Types Packs/Day Years Used Date Smoking Tobacco: Never Assessed Comments Unknown Sex and Gender Information Value Date Recorded Sex Assigned at Female 12/16/2021 10:21 AM EDT Legal Sex Female 10:21 AM EDT Gender Identity Female 12/16/2021 10:21 AM EDT Sexual Orientation Straight 12/16/2021 10 :21 AM EDT documented as of this encounter Miscellaneous Notes * Telephone Encounter - Tiffany Barrera - 02/19/2022 12:58 PM EST Tc from pt requesting a PT1 Location: [address] [place] [address] Specialty : psych and therapy Date and Time: 03/13/22 @ 2:30pm Senior Assistant Manager : no documented in this encounter Plan of Treatment Upcoming Encounters Date Type Department Care Team (Late Contact Info) Description 09/16/2024 1:00 PM EDT Office Visit [facility] [address] [place] [address] Jerri Matamoros, OD [address] [place] [address] documented as of this encounter Visit Diagnoses Not on filedocumented in this encounter Care Teams Ed Educational Aide Relationship Specialty Start Date End Date Angie Montelongo MD [address] [place] [address] PCP - General Family Medicine 02/23/13 documented as of this encounter
--- OUTSIDE RECORDS SUMMARY | 2024-09-15 08:56 | XMS_ITS | Clinical Summary ---
Author Organization [facility] Address [address] [place] [address] Phone Care Team Providers Care Dining Car Steward Name Role Phone Physician, Pcp Unknown Primary Care Provider Ekaterina vailable Allergies Active Allergy Reactions Criticality Noted Date Comments Aspirin 04/27/2024 Oxycodone 04/27/2024 Oxycodone-Acetaminophen 04/27/2024 Tramadol 04/27/2024 Social History Tobacco Use Types Packs/Day Years Used Date Smoking Tobacco: Never Assessed Comments Unknown Sex and Gender Information Value Date Recorded Sex Assigned at Not on file Legal Sex Female 10:04 AM EST Gender Identity Not on file Sexual Orientation Not on file Last Filed Vital Signs Vital Sign Reading Time Taken Comments Blood Pressure - - Pulse - - Temperature - - Respiratory Rate - - Oxygen Saturation - - Inhaled Oxygen Concentration - - Weight 73.5 kg (162 lb) 06/09/2024 1:34 PM EDT Height - - Body Mass Index - - Plan of Treatment Upcoming Encounters Date Type Department Care Team ([facility] st Contact Info) Description 09/19/2024 1:00 PM EDT Office Visit Orthopedic Surgery - [place] [id number] [phone] Ammon Haskins DPM [address] [address] Health Maintenance Due Date Last Done Comments Cervical Cancer Screening: Pap Smear 06/20/1984 Pneumococcal Vaccine: 50+ Years (1 of 1 - PCV) 06/20/2013 COVID-19 Vaccine (3 - Moderna risk series) 09/03/2020 08/06/2020, 07/13/2020 Zoster Vaccines (2 of 2) 10/17/2022 08/22/2022 Breast Cancer Screening 06/28/2023 06/27/2021 HIV Screening 02/04/2024 Hepatitis C Screening 02/04/2024 Social Influencers of Health Screening 02/04/2024 Depression Screening 02/17/2024 Influenza Vaccine (#1) 2024 2, 10/23/2019, 12/10/2017, Additional history exists Colorectal Cancer Screening: FIT-DNA (Cologuard) 01/15/2026 01/15/2023 Cholesterol Screening (Lipid Panel) 08/30/2027 08/29/2022 DTaP,Tdap,and Td Vaccines (3 - Td or Tdap) 08/22/2032 08/22/2022, 03/23/2012 RSV Immunization Adult Patients (1 - 1-dose 75+ series) 06/20/2038 HIB Vaccines Aged Out No longer eligi ble based on patient's age to complete this topic HPV Vaccines Aged Out No longer eligi ble based on patient's age to complete this topic Hepatitis A Vaccines Aged Out No long er eligible based on patient's age to complete this topic Hepatitis B Vaccines Aged Out No long er eligible based on patient's age to complete this topic IPV Vaccines Aged Out No longer eligi ble based on patient's age to complete this topic MMR Vaccines Aged Out No longer eligi ble based on patient's age to complete this topic Meningococcal ACWY Vaccine Aged Out N o longer eligible based on patient's age to complete this topic Meningococcal B Vaccine Aged Out No l onger eligible based on patient's age to complete this topic RSV Immunization Patients Under 20 months Aged Out No longer eligible based on patient's age to complete this topic Varicella Vaccines Aged Out No longer eligible based on patient's age to complete this topic Insurance MEDICAID - [place] Care Teams Dining Car Steward Relationship Specialty Start Date End Date Physician, Pcp Unknown PCP - General 02/04/24
[2024-09-15 09:01] LABS: Hematocrit 38.4 % (37.0-47.0); Hemoglobin 12.9 g/dl (12.0-16.0); Imm Gran Abs Auto 0.01 X10*3/uL (0.00-0.03); Imm Gran Pct Auto 0.2 % (0.0-0.4); Lymphocytes Absolute Auto 2.1 X10*3/uL (1.2-4.9); Mean Corpuscular HGB Conc 33.6 g/dl (31.0-35.0); Mean Corpuscular Hemoglobin 30.9 pg (27.0-33.0); Mean Corpuscular Volume 92.1 fL (80.0-98.0); NRBC Abs Auto 0.000 X10*3/uL (0.0-0.012); NRBC Pct Auto 0.0 /100WBC (0.0-0.2); Platelet Count 264 X10*3/uL (160-400); Red Blood Count 4.17 X10*6/uL (4.20-5.50); White Blood Count 4.7 X10*3/uL (4.8-10.8)
[2024-09-15 09:28] LABS: Alanine Aminotransferase 35 U/L (0-31); Albumin Level 4.4 g/dL (3.5-5.0); Alkaline Phosphatase 132 U/L (39-117); Anion Gap 12 (12-20); Aspartate Amino Transferase 24 U/L (5-31); Blood Urea Nitrogen 17 mg/dL (9-16); Calcium 9.2 mg/dL (8.4-10.2); Carbon Dioxide 30 mmol/L (22-29); Chloride 104 mmol/L (96-108); Estimated Glomerular Filt Rate > 60; Potassium 3.8 mmol/L (3.3-5.1); Sodium 142 mmol/L (135-145); Total Protein 7.3 g/dL (6.5-8.0)
== END 2024-09-15 08:46 | disposition home or self-care (01) ==
LOC: HO.LAB 08:45
PROVIDERS: PCP Student in an Organized Health Care Education/Training Program; Visit Provider Student in an Organized Health Care Education/Training Program
DX: M05.9 Rheumatoid arthritis with rheumatoid factor, unspecified (principal)
CPT/HCPCS: 36415; 80053; 85025; 85652; 86140

== ENCOUNTER 2024-12-20 10:51 | Outpatient (REF) | payer MEDICAID, SELFPAY ==
--- OUTSIDE RECORDS SUMMARY | 2024-12-20 13:08 | XMS_ITS | Clinical Summary ---
Author Organization [facility] Address [address] [place] [address] Phone Care Team Providers Care Auto Damage Appraiser Name Role Phone Physician, Pcp Unknown Primary Care Provider Ekaterina vailable Allergies Active Allergy Reactions Criticality Noted Date Comments Aspirin 04/27/2024 Oxycodone 04/27/2024 Oxycodone-Acetaminophen 04/27/2024 Tramadol 04/27/2024 Medications diclofenac (Voltaren Arthritis Pain) 1 % topical gel Apply 4 g topically 2 (two) times a day. 240 g 1 02/13/20 25 Active Hospital, Clinic, or Other Facility Administered Medication Ordered Dose Route Frequency Start Date End Date Status lidocaine (PF) (XYLOCAINE-MPF) 1 % injection 0.5 mLIndications:Planta r fasciitis .5 mL Once PRN Procedure 12/14/2024 12/14/2024 Ended triamcinolone acetonide (KENALOG-40) 40 mg/mL injection 40 mgIndications:Planta r fasciitis 40 mg Once PRN Procedure 12/14/2024 12/14/2024 Ended Encounters Date Type Department Care Team Description 12/14/2024 1:30 PM EDT Office Visit Orthopedic Surgery - [place] [address] [facility] [address] [place] [address] Ammon Haskins DPM Bone spur of posterior portion of right calcaneus (Primary Dx); Achilles tendinitis, right leg; Arthritis of both feet; Plantar fasciitis from Last 3 Months Social History Tobacco Use Types Packs/Day Years [...] Encounters Date Type Department Care Team (Late st Contact Info) Description 06/14/2025 1:30 PM EDT Office Visit Orthopedic Surgery - [place] [address] [place] [phone] Ammon Haskins, KIRILL [address] [place] [phone] Health Maintenance Due Date Last Done Comments Cervical Cancer Screening: Pap Smear 06/20/1984 Pneumococcal Vaccine: 50+ Years (1 of 1 - PCV) 06/20/2013 Zoster Vaccines (2 of 2) 10/17/2022 08/22/2022 Breast Cancer Screening 06/28/2023 06/27/2021 HIV Screening 02/04/2024 Hepatitis C Screening 02/04/2024 Social Influencers of Health Screening 02/04/2024 Depression Screening 02/17/2024 COVID-19 Vaccine ( - season) 2024 08/06/2020, 07/13/2020 Influenza Vaccine (#1) 2024 2, 10/23/2019, 12/10/2017, Additional history exists Hypertension/CHF/CAD Annual BMP Blood Test 09/15/2025 09/15/2024 Colorectal Cancer Screening: FIT-DNA (Cologuard) 01/15/2026 01/15/2023 [...] on patient's age to complete this topic Procedures Procedure Name Priority Date/Time Associated Diagnosis Comments INJECTION TENDON OR LIGAMENT Routine 12/14/2024 1:30 PM EDT Plantar fasciitis from Last 3 Months Results * Injection tendon or ligament (12/14/2024 1:30 PM EDT) Narrative Ammon Haskins DPM - 12/14/2024 1:30 PM EDT Ammon Haskins DPM 12/14/2024 5:58 PM Injection tendon or ligament Indications: pain Details: 25 G needle Medications: 0.5 mL lidocaine (PF) 1 %; 40 mg triamcinolone acetonide 40 mg/mL Informed Consent: Laterality: Right Ammon Haskins DPM IN CLINIC/BEDSIDE ORDERABLE S Final Result from Last 3 Months Insurance MEDICAID - [place] Care Teams Auto Damage Appraiser Relationship Specialty Start Date End Date Physician, Pcp Unknown PCP - General 02/04/24
[2024-12-20 14:13] LABS: MANUAL DIFF FLAG NO
[2024-12-20 14:22] LABS: Hematocrit 43.7 % (37.0-47.0); Hemoglobin 14.1 g/dl (12.0-16.0); Imm Gran Abs Auto 0.01 X10*3/uL (0.00-0.03); Imm Gran Pct Auto 0.2 % (0.0-0.4); Lymphocytes Absolute Auto 2.1 X10*3/uL (1.2-4.9); Mean Corpuscular HGB Conc 32.3 g/dl (31.0-35.0); Mean Corpuscular Hemoglobin 29.7 pg (27.0-33.0); Mean Corpuscular Volume 92.0 fL (80.0-98.0); NRBC Abs Auto 0.000 X10*3/uL (0.0-0.012); NRBC Pct Auto 0.0 /100WBC (0.0-0.2); Platelet Count 309 X10*3/uL (160-400); Red Blood Count 4.75 X10*6/uL (4.20-5.50); White Blood Count 6.1 X10*3/uL (4.8-10.8)
[2024-12-20 14:56] LABS: Alanine Aminotransferase 43 U/L (0-31); Albumin Level 5.1 g/dL (3.5-5.0); Alkaline Phosphatase 134 U/L (39-117); Anion Gap 10 (12-20); Aspartate Amino Transferase 33 U/L (5-31); Blood Urea Nitrogen 18 mg/dL (9-16); Calcium 10.0 mg/dL (8.4-10.2); Carbon Dioxide 32 mmol/L (22-29); Chloride 103 mmol/L (96-108); Cholesterol 216 mg/dL (<200); Estimated Glomerular Filt Rate > 60; HDL Cholesterol 67 mg/dL (>40); Potassium 3.7 mmol/L (3.3-5.1); Sodium 141 mmol/L (135-145); Total Protein 8.4 g/dL (6.5-8.0); Triglycerides 111 mg/dL (<150)
[2024-12-20 15:18] LABS: Hemoglobin A1C 149.9205 umol/L
[2024-12-20 16:29] LABS: Free T4 (Free Thyroxine) 1.27 ng/dL (0.71-1.85)
== END 2024-12-20 10:52 | disposition home or self-care (01) ==
LOC: HO.CHCLDS 10:51
DX: Z00.00 Encounter for general adult medical examination without abnormal findings (principal)
CPT/HCPCS: 36415; 80053; 80061; 83036; 84439; 84443; 85025

== ENCOUNTER 2025-01-27 08:05 | Outpatient (REF) | payer MEDICAID, SELFPAY | END 2025-01-27 08:06 | disposition home or self-care (01) | LOC: HO.CHCLDS 08:05 | DX: E03.9 Hypothyroidism, unspecified (principal) | CPT/HCPCS: 36415; 84443 ==